=== PATIENT | female | born 1950 | race Two or more races ===

== ENCOUNTER → 2016-09-16 | Outpatient (CLI) | payer OTHER ==
[2016-09-16 16:36] LABS: Albumin 3.4 g/dL (3.4-5.0); BUN/Creatinine Ratio 14.8; Bilirubin, Total 0.5 mg/dL (0.2-1.0); Calcium 8.9 mg/dL (8.5-10.1); Potassium 3.4 mmol/L (3.5-5.1); Total Protein 7.4 g/dL (6.4-8.2)
[2016-09-16 17:10] LABS: INR 1.02 (0.9-1.15); Partial Thromboplastin Time 28.5 sec (22.64-33.71)
== END | disposition home or self-care (01) ==
LOC: LAB 15:55
PROVIDERS: ATTEND Internal Medicine
DX: K76.0 Fatty (change of) liver, not elsewhere classified (principal); R73.01 Impaired fasting glucose
CPT/HCPCS: 36415; 80053; 83036; 85610; 85730; 86141

== ENCOUNTER → 2017-03-31 | Outpatient (CLI) | payer OTHER ==
[2017-03-31 10:41] LABS: Urine Bilirubin Negative (Negative); Urine Blood Negative /uL (Negative); Urine Color Yellow (Yellow); Urine Glucose Normal (Normal); Urine Ketone Negative (Negative); Urine Mucus FEW (None Seen); Urine Nitrite Negative (Negative); Urine RBC 1 /hpf (0 - 4); Urine Squamous Epithelial Cell MOD /hpf (<5); Urine Urobilinogen Normal (Negative); Urine pH 5.5 (5.0-8.0)
[2017-03-31 10:54] LABS: Albumin 3.6 g/dL (3.4-5.0); Bilirubin, Total 0.7 mg/dL (0.2-1.0); Calcium 8.8 mg/dL (8.5-10.1); Potassium 3.7 mmol/L (3.5-5.1); Total Protein 7.7 g/dL (6.4-8.2)
== END | disposition home or self-care (01) ==
LOC: LAB 09:52
PROVIDERS: ATTEND Internal Medicine
DX: E11.9 Type 2 diabetes mellitus without complications (principal); K76.0 Fatty (change of) liver, not elsewhere classified
CPT/HCPCS: 36415; 80053; 80061; 81001; 82043; 83036; 84439; 84443; 86038

== ENCOUNTER → 2017-09-19 | Outpatient (CLI) | payer OTHER ==
[2017-09-19 10:48] LABS: Basophils # (auto) 0 uL; Basophils % (auto) 0.6 % (0.0-2.0); Eosinophils # (auto) 0.2 uL; Eosinophils % (auto) 3.4 % (0.0-7.0); Hematocrit 44.5 % (36.0-46.0); Hemoglobin 14.9 g/dL (12.2-16.2); Lymphocytes # (auto) 1.6 uL; Lymphocytes % (auto) 30.5 % (10.0-50.0); Mean Corpuscular Hemoglobin 31.3 pg (28.0-32.0); Mean Corpuscular Hgb Conc. 33.4 g/dL (32.0-36.0); Mean Corpuscular Volume 93.8 fL (80.0-100.0); Monocytes # (auto) 0.5 uL; Monocytes % (auto) 9.6 % (0.0-12.0); Neutrophils % (auto) 55.9 % (37.0-80.0); Nucleated Red Blood Cells % 0.1 %; Platelet Count (auto) 217 10^3/uL (140-450); Red Blood Cells 4.75 10^6/uL (4.0-5.20); Red Cell Distribution Width 13.5 % (11.8-14.3); White Blood Cell 5.3 10^3/uL (4.4-10.8)
[2017-09-19 11:07] LABS: INR 1.03 (0.9-1.15); Partial Thromboplastin Time 28.4 sec (22.64-33.71); Prothrombin Time 11.2 sec (9.37-12.3)
[2017-09-19 11:45] LABS: Albumin 3.3 g/dL (3.4-5.0); BUN/Creatinine Ratio 9.7; Bilirubin, Total 0.6 mg/dL (0.2-1.0); Potassium 3.6 mmol/L (3.5-5.1); Total Protein 7.2 g/dL (6.4-8.2)
== END | disposition home or self-care (01) ==
LOC: LAB 10:35
PROVIDERS: ATTEND Internal Medicine
DX: K76.0 Fatty (change of) liver, not elsewhere classified (principal); R73.03 Prediabetes; R79.89 Other specified abnormal findings of blood chemistry
CPT/HCPCS: 36415; 80053; 83036; 85025; 85610; 85730

== ENCOUNTER → 2018-10-08 | Outpatient (CLI) | payer OTHER, BC ==
[2018-10-08 09:49] LABS: BUN/Creatinine Ratio 23.7; Potassium 3.6 mmol/L (3.5-5.1)
[2018-10-08 09:51] LABS: Albumin 3.4 g/dL (3.4-5.0); Bilirubin, Total 0.6 mg/dL (0.2-1.0); Calcium 8.4 mg/dL (8.5-10.1); Total Protein 7.4 g/dL (6.4-8.2)
== END | disposition home or self-care (01) ==
LOC: LAB 08:12
PROVIDERS: ATTEND Internal Medicine
DX: K76.0 Fatty (change of) liver, not elsewhere classified (principal); R73.03 Prediabetes
CPT/HCPCS: 36415; 80053; 83036

== ENCOUNTER → 2019-04-15 | Outpatient (CLI) | payer OTHER ==
[2019-04-15 13:14] LABS: Urine Bacteria FEW /hpf (None Seen); Urine Blood Negative /uL (Negative); Urine Hyaline Cast MANY /lpf (0 - 2); Urine Mucus MODERATE (None Seen); Urine Specific Gravity 1.028 (1.001-1.035); Urine WBC 2 /hpf (0 - 5)
[2019-04-15 13:36] LABS: Albumin 3.4 g/dL (3.4-5.0); Calcium 8.8 mg/dL (8.5-10.1); Potassium 3.8 mmol/L (3.5-5.1); Total Protein 7.5 g/dL (6.4-8.2)
[2019-04-15 13:38] LABS: Bilirubin, Total 0.6 mg/dL (0.2-1.0)
[2019-04-15 14:13] LABS: Basophils # (auto) 0 uL; Basophils % (auto) 0.3 % (0.0-2.0); Eosinophils # (auto) 0.1 uL; Hematocrit 44.7 % (36.0-46.0); Hemoglobin 15.3 g/dL (12.2-16.2); Lymphocytes # (auto) 1.7 uL; Lymphocytes % (auto) 23.3 % (10.0-50.0); Mean Corpuscular Hemoglobin 32.2 pg (28.0-32.0); Mean Corpuscular Hgb Conc. 34.2 g/dL (32.0-36.0); Mean Corpuscular Volume 94.3 fL (80.0-100.0); Monocytes # (auto) 0.7 uL; Monocytes % (auto) 9.9 % (0.0-12.0); Neutrophils # (auto) 4.7 uL; Neutrophils % (auto) 64.5 % (37.0-80.0); Nucleated Red Blood Cells % 0.1 %; Platelet Count (auto) 252 10^3/uL (140-450); Red Blood Cells 4.74 10^6/uL (4.0-5.20); Red Cell Distribution Width 13.7 % (11.8-14.3); White Blood Cell 7.3 10^3/uL (4.4-10.8)
== END | disposition home or self-care (01) ==
LOC: LAB 12:35
PROVIDERS: ATTEND Internal Medicine
DX: R73.03 Prediabetes (principal); E83.52 Hypercalcemia
CPT/HCPCS: 36415; 80053; 80061; 81001; 82043; 83036; 83970; 84439; 84443; 85025; 85652

== ENCOUNTER → 2020-03-03 | Outpatient (CLI) | payer OTHER ==
[2020-03-03 16:59] LABS: Urine Bacteria NONE SEEN /hpf (None Seen); Urine Blood Negative /uL (Negative); Urine Mucus FEW (None Seen); Urine Specific Gravity 1.018 (1.001-1.035); Urine WBC 1 /hpf (0 - 5)
[2020-03-03 17:07] LABS: Basophils # (auto) 0 10 ^3/uL (0-0.2); Basophils % (auto) 0.5 % (0.0-2.0); Eosinophils # (auto) 0.2 10 ^3/uL (0-0.8); Eosinophils % (auto) 3.2 % (0.0-7.0); Hematocrit 45.3 % (36.0-46.0); Hemoglobin 14.7 g/dL (12.2-16.2); Lymphocytes # (auto) 1.8 10 ^3/uL (0.4-5.4); Lymphocytes % (auto) 29.9 % (10.0-50.0); Mean Corpuscular Hgb Conc. 32.5 g/dL (32.0-36.0); Mean Corpuscular Volume 95.2 fL (80.0-100.0); Monocytes # (auto) 0.7 10 ^3/uL (0-1.3); Monocytes % (auto) 11.9 % (0.0-12.0); Neutrophils # (auto) 3.4 10 ^3/uL (1.6-8.6); Neutrophils % (auto) 54.5 % (37.0-80.0); Nucleated Red Blood Cells % 0.1 %; Platelet Count (auto) 207 10^3/uL (140-450); Red Blood Cells 4.76 10^6/uL (4.0-5.20); Red Cell Distribution Width 13.6 % (11.8-14.3); White Blood Cell 6.2 10^3/uL (4.4-10.8)
[2020-03-03 17:50] LABS: Albumin 3.4 g/dL (3.4-5.0); Calcium 8.9 mg/dL (8.5-10.1); Potassium 3.3 mmol/L (3.5-5.1)
[2020-03-03 17:56] LABS: BUN/Creatinine Ratio 20.7; Bilirubin, Total 0.9 mg/dL (0.2-1.0); Total Protein 7.2 g/dL (6.4-8.2)
== END | disposition home or self-care (01) ==
LOC: LAB 15:24
PROVIDERS: ATTEND Internal Medicine
DX: M46.1 Sacroiliitis, not elsewhere classified (principal); E11.9 Type 2 diabetes mellitus without complications
CPT/HCPCS: 36415; 80053; 80061; 81001; 82043; 83036; 84439; 84443; 85025; 85652; 86038; 86431; 86812

== ENCOUNTER 2020-05-23 23:03 | Emergency (ER) | payer OTHER ==
[2020-05-23 23:10] VITALS: BP 101/71
== END 2020-05-24 00:27 | disposition left against medical advice (07) ==
LOC: ER 23:04
DX: R04.0 Epistaxis (principal); Z53.21 Procedure and treatment not carried out due to patient leaving prior to being seen by health care provider

== ENCOUNTER → 2020-06-05 | Outpatient (CLI) | payer OTHER ==
[2020-06-05 08:03] LABS: Basophils # (auto) 0 10 ^3/uL (0-0.2); Basophils % (auto) 0.5 % (0.0-2.0); Eosinophils # (auto) 0.2 10 ^3/uL (0-0.8); Eosinophils % (auto) 4.9 % (0.0-7.0); Hematocrit 40.9 % (36.0-46.0); Hemoglobin 13.8 g/dL (12.2-16.2); Lymphocytes # (auto) 1.7 10 ^3/uL (0.4-5.4); Lymphocytes % (auto) 34.9 % (10.0-50.0); Mean Corpuscular Hemoglobin 32.2 pg (28.0-32.0); Mean Corpuscular Hgb Conc. 33.6 g/dL (32.0-36.0); Mean Corpuscular Volume 95.8 fL (80.0-100.0); Monocytes # (auto) 0.6 10 ^3/uL (0-1.3); Monocytes % (auto) 11.4 % (0.0-12.0); Neutrophils # (auto) 2.4 10 ^3/uL (1.6-8.6); Neutrophils % (auto) 48.3 % (37.0-80.0); Nucleated Red Blood Cells % 0.1 %; Platelet Count (auto) 273 10^3/uL (140-450); Red Blood Cells 4.27 10^6/uL (4.0-5.20); Red Cell Distribution Width 14.2 % (11.8-14.3); White Blood Cell 4.9 10^3/uL (4.4-10.8)
[2020-06-05 08:09] LABS: Albumin 3.2 g/dL (3.4-5.0); Calcium 8.5 mg/dL (8.5-10.1); Potassium 3.3 mmol/L (3.5-5.1)
[2020-06-05 08:13] LABS: BUN/Creatinine Ratio 11.9; Bilirubin, Total 0.7 mg/dL (0.2-1.0); Total Protein 7.1 g/dL (6.4-8.2)
[2020-06-05 08:15] LABS: INR 1.06 (0.9-1.15)
== END | disposition home or self-care (01) ==
LOC: LAB 07:30
PROVIDERS: ATTEND Internal Medicine
DX: E11.9 Type 2 diabetes mellitus without complications (principal); R04.0 Epistaxis; D04.0 Carcinoma in situ of skin of lip
CPT/HCPCS: 36415; 80053; 83036; 85025; 85610

== ENCOUNTER → 2021-06-12 | Outpatient (CLI) | payer OTHER | END | disposition home or self-care (01) | LOC: LAB 08:46 | PROVIDERS: ATTEND Internal Medicine | DX: E11.9 Type 2 diabetes mellitus without complications (principal) | CPT/HCPCS: 36415; 82947; 83036 ==

== ENCOUNTER → 2021-09-12 | Outpatient (CLI) | payer OTHER ==
[2021-09-12 11:22] LABS: Basophils # (auto) 0 10 ^3/uL (0-0.2); Basophils % (auto) 0.5 % (0.0-2.0); Eosinophils # (auto) 0.2 10 ^3/uL (0-0.8); Eosinophils % (auto) 4.7 % (0.0-7.0); Hematocrit 43.1 % (36.0-46.0); Hemoglobin 14.8 g/dL (12.2-16.2); Lymphocytes # (auto) 1.1 10 ^3/uL (0.4-5.4); Lymphocytes % (auto) 25.5 % (10.0-50.0); Mean Corpuscular Hemoglobin 32.9 pg (28.0-32.0); Mean Corpuscular Hgb Conc. 34.2 g/dL (32.0-36.0); Mean Corpuscular Volume 96.1 fL (80.0-100.0); Monocytes # (auto) 0.4 10 ^3/uL (0-1.3); Monocytes % (auto) 9.9 % (0.0-12.0); Neutrophils # (auto) 2.5 10 ^3/uL (1.6-8.6); Neutrophils % (auto) 59.4 % (37.0-80.0); Nucleated Red Blood Cells % 0.1 %; Red Blood Cells 4.49 10^6/uL (4.0-5.20); Red Cell Distribution Width 14.5 % (11.8-14.3); White Blood Cell 4.2 10^3/uL (4.4-10.8)
[2021-09-12 11:48] LABS: Albumin 3.1 g/dL (3.4-5.0); Calcium 8.4 mg/dL (8.5-10.1); Potassium 3.2 mmol/L (3.5-5.1)
[2021-09-12 11:51] LABS: BUN/Creatinine Ratio 18.5; Bilirubin, Total 0.8 mg/dL (0.2-1.0)
== END | disposition home or self-care (01) ==
LOC: LAB 11:04
PROVIDERS: ATTEND Internal Medicine
DX: E11.9 Type 2 diabetes mellitus without complications (principal); M19.90 Unspecified osteoarthritis, unspecified site
CPT/HCPCS: 36415; 80053; 83036; 85025; 85652; 86200; 86431

== ENCOUNTER 2021-12-05 10:45 | Inpatient (IN) | payer OTHER ==
[~2021-12-05] VITALS: Ht 154.9 cm; Wt 131.0 kg
[2021-12-05] MEDS ORDERED: SODIUM CHLORIDE 0.9% 500 ML IVB ONE (11:15)
[2021-12-05] MEDS ORDERED: SODIUM CHLORIDE 0.9% 1,000 ML IV ONE (11:15)
[2021-12-05 11:54] LABS: Basophils # (auto) 0 10 ^3/uL (0-0.2); Basophils % (auto) 0.3 % (0.0-2.0); Eosinophils # (auto) 0.3 10 ^3/uL (0-0.8); Eosinophils % (auto) 3.3 % (0.0-7.0); Hematocrit 41.7 % (36.0-46.0); Hemoglobin 14.2 g/dL (12.2-16.2); Lymphocytes # (auto) 0.8 10 ^3/uL (0.4-5.4); Lymphocytes % (auto) 7.9 % (10.0-50.0); Mean Corpuscular Hemoglobin 32.7 pg (28.0-32.0); Mean Corpuscular Hgb Conc. 33.9 g/dL (32.0-36.0); Mean Corpuscular Volume 96.2 fL (80.0-100.0); Monocytes # (auto) 1.3 10 ^3/uL (0-1.3); Monocytes % (auto) 13.6 % (0.0-12.0); Neutrophils # (auto) 7.3 10 ^3/uL (1.6-8.6); Neutrophils % (auto) 74.9 % (37.0-80.0); Nucleated Red Blood Cells % 0.1 %; Red Blood Cells 4.34 10^6/uL (4.0-5.20); Red Cell Distribution Width 13.9 % (11.8-14.3); White Blood Cell 9.8 10^3/uL (4.4-10.8)
[2021-12-05 12:17] LABS: Urine Bacteria FEW /hpf (None Seen); Urine Blood Negative /uL (Negative); Urine Mucus FEW (None Seen); Urine Specific Gravity 1.009 (1.001-1.035); Urine WBC 6 /hpf (0 - 5)
[2021-12-05 12:27] LABS: Magnesium 2.4 mg/dL (1.6-2.6)
[2021-12-05 12:33] LABS: Albumin 2.5 g/dL (3.4-5.0); Calcium 8.4 mg/dL (8.5-10.1); Potassium 3.5 mmol/L (3.5-5.1)
[2021-12-05 12:36] LABS: Bilirubin, Total 2.4 mg/dL (0.2-1.0); Total Protein 6.7 g/dL (6.4-8.2)
[2021-12-05] MEDS ORDERED: ONDANSETRON HCL 4 MG/2 ML VIAL IV PRN ×2 (16:15→21:15)
[2021-12-05] MEDS ORDERED: MORPHINE SULFATE INJ 2 MG/ml SYRG IV PRN ×2 (16:15)
[2021-12-05] MEDS ORDERED: NITROGLYCERIN 0.4 MG SL TAB SL PRN (16:15)
[2021-12-05] MEDS ORDERED: DEXTROSE (50%) 50ML SYRG IV PRN (16:15)
[2021-12-05] MEDS ORDERED: IOHEXOL 350 MG/ML 100ML IJ ONE (16:19)
[2021-12-05] MEDS: SODIUM CHLORIDE 0.9% 1,000 ML IV SCH (16:30)
[2021-12-05] MEDS: InsuLIN REG 1unit/0.01ml Soln (100units/ml) SC SCH (17:00)
[2021-12-05] MEDS: ACCU-CHEK COMFORT CURVE STRIP VI SCH ×2 (17:33→21:50)
[2021-12-05] MEDS ORDERED: hydrALAZINE HCL 20 MG/ML VL IV PRN (21:15)
[2021-12-05] MEDS ORDERED: DOCUSATE SOD 100 MG CAP PO PRN (21:15)
[2021-12-05] MEDS ORDERED: LORazepam 0.5 MG TAB PO PRN (21:15)
[2021-12-05] MEDS ORDERED: ACETAMINOPHEN 325 MG TAB PO PRN (21:15)
[2021-12-05 21:36] VITALS: BP 113/54
[2021-12-05] MEDS: metroNIDAZOLE 500MG/100ML 100 ML IV SCH (21:50)
[2021-12-05 22:00] VITALS: BP 113/54
[2021-12-05] MEDS ORDERED: IBUP800T27 PO (22:00)
[2021-12-05] MEDS ORDERED: InsuLIN REG 1unit/0.01ml Soln (100units/ml) SC SCH (22:00)
[2021-12-05] MEDS ORDERED: GLIM-5 PO (22:00)
[2021-12-05] MEDS ORDERED: HYDR-4188 PO (22:02)
[2021-12-05] MEDS ORDERED: DIPH1TAB30 PO (22:02)
[2021-12-05 22:17] LABS: Magnesium 2.3 mg/dL (1.6-2.6); Phosphorus 3.9 mg/dL (2.5-4.90)
[2021-12-05] MEDS: cefTRIAXone 1GM/50ML D5W 50 ML IV SCH (23:15)
[2021-12-05] MEDS ORDERED: TEMAZEPAM 15 MG CAP PO ONE (23:15)
[2021-12-05] MEDS ORDERED: TEMAZEPAM 15 MG CAP ONE (23:23)
[2021-12-05 23:24] LABS: INR 1.16 (0.9-1.15); Partial Thromboplastin Time 29.7 sec (23.6-33.0)
[2021-12-06] MEDS: MORPHINE SULFATE INJ 2 MG/ml SYRG IV PRN ×3 (02:58→17:29)
[2021-12-06 05:00] VITALS: BP 125/64
[2021-12-06 05:28] LABS: Hematocrit 36.8 % (36.0-46.0); Mean Corpuscular Hemoglobin 33.1 pg (28.0-32.0); Mean Corpuscular Hgb Conc. 35.2 g/dL (32.0-36.0); Red Blood Cells 3.91 10^6/uL (4.0-5.20); Red Cell Distribution Width 13.6 % (11.8-14.3); White Blood Cell 9.4 10^3/uL (4.4-10.8)
[2021-12-06 05:45] LABS: Basophils % (manual) 0 (0.0-2.0); Blast Cells 0; Metamyelocytes % 0; Myelocytes % 0; Promyelocytes % 0; Reactive Lymphocytes 0
[2021-12-06 05:48] LABS: INR 1.16 (0.9-1.15); Partial Thromboplastin Time 30.6 sec (23.6-33.0)
[2021-12-06 06:23] LABS: Magnesium 2.2 mg/dL (1.6-2.6)
[2021-12-06] MEDS: metroNIDAZOLE 500MG/100ML 100 ML IV SCH ×3 (06:23→21:19)
[2021-12-06 06:31] LABS: Albumin 2.3 g/dL (3.4-5.0); BUN/Creatinine Ratio 21.2; Bilirubin, Total 1.5 mg/dL (0.2-1.0); Calcium 7.6 mg/dL (8.5-10.1); Phosphorus 3.6 mg/dL (2.5-4.90); Total Protein 6.1 g/dL (6.4-8.2); Uric Acid 5.2 mg/dL (2.6-6.0)
[2021-12-06] MEDS: InsuLIN REG 1unit/0.01ml Soln (100units/ml) SC SCH ×3 (06:39→17:27)
[2021-12-06] MEDS: ACCU-CHEK COMFORT CURVE STRIP VI SCH ×4 (06:39→17:28)
[2021-12-06 06:54] LABS: Potassium 2.8 mmol/L (3.5-5.1)
[2021-12-06] MEDS: SODIUM CHLORIDE 0.9% 1,000 ML IV SCH ×2 (08:55→14:21)
[2021-12-06 09:00] VITALS: BP 109/57
[2021-12-06 09:10] LABS: Band Neutrophils % (manual) 2; Eosinophils % (manual) 6 (0-7); Lymphocytes % (manual) 6 (10.0-50.0); Monocytes % (manual) 14 (0-12)
[2021-12-06] MEDS: cefTRIAXone 1GM/50ML D5W 50 ML IV SCH (09:53)
[2021-12-06] MEDS ORDERED: ENOXAPARIN SOD 40 MG/0.4 ML SYRINGE SC SCH (10:00)
[2021-12-06] MEDS ORDERED: POTASSIUM CHLORIDE 60 MEQ, LIDOCAINE 1% (LOCAL ANESTH.) 6 ML in SODIUM CHL 0.9% 500 ML IV ONE (11:15)
[2021-12-06] MEDS ORDERED: DEXTROSE (50%) 50ML SYRG IV PRN (11:45)
[2021-12-06 13:00] VITALS: BP 137/89
[2021-12-06] MEDS: ALBUTEROL SULF 2.5 MG/0.5ML(0.5%) NEB SOLN NEB PRN ×2 (14:46→20:29)
[2021-12-06 16:27] LABS: BUN/Creatinine Ratio 23.8; Calcium 7.8 mg/dL (8.5-10.1); Potassium 3.6 mmol/L (3.5-5.1)
[2021-12-06 17:00] VITALS: BP 134/75
[2021-12-06] MEDS: HYDROcodone-ACET 5/325MG TAB PO PRN (20:13)
[2021-12-06 21:16] VITALS: BP 122/67
[2021-12-07] MEDS: ACCU-CHEK COMFORT CURVE STRIP VI SCH ×5 (00:09→23:38)
[2021-12-07] MEDS: SODIUM CHLORIDE 0.9% 1,000 ML IV SCH ×2 (02:48→13:59)
[2021-12-07 05:00] VITALS: BP 121/60
[2021-12-07] MEDS: metroNIDAZOLE 500MG/100ML 100 ML IV SCH ×3 (05:46→21:33)
[2021-12-07] MEDS: ALBUTEROL SULF 2.5 MG/0.5ML(0.5%) NEB SOLN NEB PRN ×3 (05:58→22:03)
[2021-12-07] MEDS: InsuLIN REG 1unit/0.01ml Soln (100units/ml) SC SCH ×5 (06:00→23:38)
[2021-12-07 06:16] LABS: Hematocrit 34.3 % (36.0-46.0); Hemoglobin 12.2 g/dL (12.2-16.2); Mean Corpuscular Hemoglobin 33.4 pg (28.0-32.0); Mean Corpuscular Hgb Conc. 35.5 g/dL (32.0-36.0); Mean Corpuscular Volume 94.1 fL (80.0-100.0); Red Blood Cells 3.65 10^6/uL (4.0-5.20)
[2021-12-07 06:29] LABS: Band Neutrophils % (manual) 0; Basophils % (manual) 0 (0.0-2.0); Blast Cells 0; Metamyelocytes % 0; Potassium 3.3 mmol/L (3.5-5.1); Promyelocytes % 0; Reactive Lymphocytes 0
[2021-12-07 06:37] LABS: BUN/Creatinine Ratio 31.6; Bilirubin, Total 1.4 mg/dL (0.2-1.0); Calcium 7.5 mg/dL (8.5-10.1); Total Protein 5.9 g/dL (6.4-8.2)
[2021-12-07] MEDS ORDERED: ceFAZolin 1GM/50ML 100 ML IV ONE (06:54)
[2021-12-07] MEDS ORDERED: MIDAZOLAM HCL 2MG/2ML 2ml VIAL (1mg/ml) ONE (07:31)
[2021-12-07] MEDS ORDERED: ROCURONIUM 10MG/ML 10ML VIAL IV ONE (07:31)
[2021-12-07] MEDS ORDERED: fentaNYL CITRATE 100 MCG/2 ML VL ONE (07:31)
[2021-12-07] MEDS ORDERED: BUPIVACAINE 0.25% INJ 50ML VIAL ONE (07:36)
[2021-12-07] MEDS ORDERED: LIDOCAINE 1%-Mpf/Epinephrine 1:200,000 ONE (07:36)
[2021-12-07] MEDS ORDERED: SUCCINYLCHOLINE CHLORIDE 20 MG/ML 10ML VIAL IV ONE (07:43)
[2021-12-07] MEDS ORDERED: ONDANSETRON HCL 4 MG/2 ML VIAL ONE (07:46)
[2021-12-07] MEDS ORDERED: PROPOFOL 10 MG/ML 20 ML IV ONE (07:46)
[2021-12-07] MEDS ORDERED: LIDOCAINE 2% (LOCAL ANESTH.) PF 5ml SDV ONE (07:46)
[2021-12-07 08:29] LABS: Eosinophils % (manual) 3 (0-7); Lymphocytes % (manual) 5 (10.0-50.0); Monocytes % (manual) 14 (0-12); Myelocytes % 1
[2021-12-07] MEDS: cefTRIAXone 1GM/50ML D5W 50 ML IV SCH (09:00)
[2021-12-07] MEDS ORDERED: HYDROmorphone HCL 2 MG/ML VL/or syr ONE (09:03)
[2021-12-07] MEDS ORDERED: ONDANSETRON HCL 4 MG/2 ML VIAL IV PRN (09:15)
[2021-12-07] MEDS ORDERED: HYDROmorphone HCL 2 MG/ML VL/or syr IV PRN (09:15)
[2021-12-07] MEDS ORDERED: PHENYLEPHRINE HCL 10 MG/ML VL ONE (09:20)
[2021-12-07] MEDS ORDERED: SUGAMMADEX 200mg/2ml Vial (100MG/ML) IV ONE ×2 (09:25→09:57)
[2021-12-07] MEDS ORDERED: NALOXONE HCL 0.4 MG/ML VIAL ONE (09:55)
[2021-12-07] MEDS ORDERED: POTASSIUM CHLORIDE 40 MEQ, LIDOCAINE 1% (LOCAL ANESTH.) 4 ML in SODIUM CHL 0.9% 250 ML IV ONE (10:30)
[2021-12-07] MEDS: HYDROmorphone HCL 2 MG/ML VL/or syr IV PRN ×4 (10:30→11:00)
[2021-12-07] MEDS: PANTOPRAZOLE 40 MG/10 ML VIAL INJ IV SCH (12:58)
[2021-12-07 13:00] VITALS: BP 131/70
[2021-12-07 16:28] VITALS: BP 124/94
[2021-12-07 22:00] VITALS: BP 126/74
[2021-12-08] MEDS: ALBUTEROL SULF 2.5 MG/0.5ML(0.5%) NEB SOLN NEB PRN ×4 (02:10→14:29)
[2021-12-08 05:00] VITALS: BP 119/64
[2021-12-08] MEDS: SODIUM CHLORIDE 0.9% 1,000 ML IV SCH ×2 (05:00→16:10)
[2021-12-08 05:13] LABS: Basophils # (auto) 0 10 ^3/uL (0-0.2); Basophils % (auto) 0.1 % (0.0-2.0); Eosinophils # (auto) 0.1 10 ^3/uL (0-0.8); Eosinophils % (auto) 0.6 % (0.0-7.0); Hematocrit 34.1 % (36.0-46.0); Hemoglobin 11.4 g/dL (12.2-16.2); Lymphocytes # (auto) 0.7 10 ^3/uL (0.4-5.4); Lymphocytes % (auto) 6.3 % (10.0-50.0); Mean Corpuscular Hemoglobin 32.3 pg (28.0-32.0); Mean Corpuscular Hgb Conc. 33.6 g/dL (32.0-36.0); Mean Corpuscular Volume 96.1 fL (80.0-100.0); Monocytes # (auto) 1.8 10 ^3/uL (0-1.3); Monocytes % (auto) 15.6 % (0.0-12.0); Neutrophils # (auto) 9.1 10 ^3/uL (1.6-8.6); Neutrophils % (auto) 77.4 % (37.0-80.0); Red Blood Cells 3.55 10^6/uL (4.0-5.20); Red Cell Distribution Width 13.9 % (11.8-14.3); White Blood Cell 11.8 10^3/uL (4.4-10.8)
[2021-12-08 05:33] LABS: Albumin 1.9 g/dL (3.4-5.0); Calcium 7.3 mg/dL (8.5-10.1); Potassium 4.2 mmol/L (3.5-5.1)
[2021-12-08 05:36] LABS: Bilirubin, Total 1.2 mg/dL (0.2-1.0); Total Protein 5.9 g/dL (6.4-8.2)
[2021-12-08] MEDS: ACCU-CHEK COMFORT CURVE STRIP VI SCH ×2 (05:53→12:00)
[2021-12-08] MEDS: InsuLIN REG 1unit/0.01ml Soln (100units/ml) SC SCH ×2 (05:53→12:00)
[2021-12-08] MEDS: metroNIDAZOLE 500MG/100ML 100 ML IV SCH ×3 (05:53→21:46)
[2021-12-08 08:36] VITALS: BP 114/62
[2021-12-08] MEDS: PANTOPRAZOLE 40 MG/10 ML VIAL INJ IV SCH (09:17)
[2021-12-08] MEDS: cefTRIAXone 1GM/50ML D5W 50 ML IV SCH (09:22)
[2021-12-08] MEDS: HYDROmorphone HCL 2 MG/ML VL/or syr IV PRN ×3 (09:22→19:43)
[2021-12-08] MEDS ORDERED: LORazepam 2MG/ML-1ML VIAL IV PRN (09:45)
[2021-12-08 13:00] VITALS: BP 103/59
[2021-12-08 17:24] VITALS: BP 109/57
[2021-12-08] MEDS: ALBUTEROL SULF 2.5 MG/0.5ML(0.5%) NEB SOLN NEB SCH ×2 (18:35→21:59)
[2021-12-08] MEDS: HYDROcodone-ACET 5/325MG TAB PO PRN (21:45)
[2021-12-08 22:00] VITALS: BP 112/53
[2021-12-09] MEDS: ACCU-CHEK COMFORT CURVE STRIP VI SCH ×4 (00:02→18:00)
[2021-12-09] MEDS: HYDROmorphone HCL 2 MG/ML VL/or syr IV PRN ×3 (00:15→21:43)
[2021-12-09] MEDS: ALBUTEROL SULF 2.5 MG/0.5ML(0.5%) NEB SOLN NEB SCH ×5 (01:59→19:03)
[2021-12-09 05:00] VITALS: BP 124/74
[2021-12-09] MEDS: metroNIDAZOLE 500MG/100ML 100 ML IV SCH ×3 (05:28→21:42)
[2021-12-09] MEDS: InsuLIN REG 1unit/0.01ml Soln (100units/ml) SC SCH ×4 (05:28→18:00)
[2021-12-09 05:57] LABS: Basophils # (auto) 0 10 ^3/uL (0-0.2); Basophils % (auto) 0.1 % (0.0-2.0); Eosinophils # (auto) 0.5 10 ^3/uL (0-0.8); Eosinophils % (auto) 4.8 % (0.0-7.0); Hematocrit 32.6 % (36.0-46.0); Hemoglobin 11.3 g/dL (12.2-16.2); Lymphocytes # (auto) 1.1 10 ^3/uL (0.4-5.4); Lymphocytes % (auto) 11.4 % (10.0-50.0); Mean Corpuscular Hemoglobin 33.2 pg (28.0-32.0); Mean Corpuscular Hgb Conc. 34.7 g/dL (32.0-36.0); Mean Corpuscular Volume 95.7 fL (80.0-100.0); Monocytes # (auto) 1.4 10 ^3/uL (0-1.3); Neutrophils # (auto) 6.8 10 ^3/uL (1.6-8.6); Neutrophils % (auto) 69.7 % (37.0-80.0); Red Blood Cells 3.41 10^6/uL (4.0-5.20); White Blood Cell 9.8 10^3/uL (4.4-10.8)
[2021-12-09 06:17] LABS: Calcium 7.6 mg/dL (8.5-10.1); Potassium 3.6 mmol/L (3.5-5.1)
[2021-12-09 06:22] LABS: BUN/Creatinine Ratio 38.4
[2021-12-09] MEDS: SODIUM CHLORIDE 0.9% 1,000 ML IV SCH ×2 (06:25→19:45)
[2021-12-09 07:07] VITALS: BP 122/71
[2021-12-09 09:00] VITALS: BP 112/45
[2021-12-09] MEDS: PANTOPRAZOLE 40 MG/10 ML VIAL INJ IV SCH (10:33)
[2021-12-09] MEDS: cefTRIAXone 1GM/50ML D5W 50 ML IV SCH (10:33)
[2021-12-09 13:00] VITALS: BP 105/45
[2021-12-09] MEDS: HYDROcodone-ACET 5/325MG TAB PO PRN (13:25)
[2021-12-09 17:00] VITALS: BP 106/67
[2021-12-09 22:00] VITALS: BP 121/66
[2021-12-09] MEDS ORDERED: diphenhdrAMINE HCL 25 MG CAP PO ONE ×2 (22:45→23:20)
[2021-12-10] MEDS: ACCU-CHEK COMFORT CURVE STRIP VI SCH ×5 (00:28→23:42)
[2021-12-10] MEDS: ALBUTEROL SULF 2.5 MG/0.5ML(0.5%) NEB SOLN NEB SCH ×7 (02:00→23:04)
[2021-12-10] MEDS: HYDROmorphone HCL 2 MG/ML VL/or syr IV PRN ×3 (02:17→22:20)
[2021-12-10 05:00] VITALS: BP 122/67
[2021-12-10] MEDS: metroNIDAZOLE 500MG/100ML 100 ML IV SCH (05:56)
[2021-12-10] MEDS: InsuLIN REG 1unit/0.01ml Soln (100units/ml) SC SCH ×5 (05:57→23:42)
[2021-12-10 08:20] VITALS: BP 105/64
[2021-12-10] MEDS: cefTRIAXone 1GM/50ML D5W 50 ML IV SCH (08:30)
[2021-12-10] MEDS: PANTOPRAZOLE 40 MG/10 ML VIAL INJ IV SCH (08:31)
[2021-12-10 09:48] LABS: Hepatitis A Ab IgM Negative; Hepatitis B Core IgM Negative; Hepatitis C Antibody Negative (Negative)
[2021-12-10 12:15] VITALS: BP 106/53
[2021-12-10] MEDS: metroNIDAZOLE 500 MG TAB PO SCH ×2 (13:37→21:11)
[2021-12-10 16:25] VITALS: BP 113/47
[2021-12-10] MEDS: HYDROcodone-ACET 5/325MG TAB PO PRN (18:02)
[2021-12-10 22:00] VITALS: BP 118/63
[2021-12-11 05:00] VITALS: BP 121/63
[2021-12-11] MEDS: InsuLIN REG 1unit/0.01ml Soln (100units/ml) SC SCH ×4 (05:06→23:19)
[2021-12-11] MEDS: metroNIDAZOLE 500 MG TAB PO SCH ×3 (05:06→21:44)
[2021-12-11] MEDS: ACCU-CHEK COMFORT CURVE STRIP VI SCH ×4 (05:06→23:19)
[2021-12-11 05:21] LABS: Basophils # (auto) 0 10 ^3/uL (0-0.2); Basophils % (auto) 0.6 % (0.0-2.0); Eosinophils # (auto) 0.5 10 ^3/uL (0-0.8); Eosinophils % (auto) 8.6 % (0.0-7.0); Hematocrit 33.9 % (36.0-46.0); Hemoglobin 11.8 g/dL (12.2-16.2); Lymphocytes % (auto) 16.6 % (10.0-50.0); Mean Corpuscular Hemoglobin 33.4 pg (28.0-32.0); Mean Corpuscular Hgb Conc. 34.6 g/dL (32.0-36.0); Mean Corpuscular Volume 96.3 fL (80.0-100.0); Monocytes # (auto) 0.7 10 ^3/uL (0-1.3); Monocytes % (auto) 12.4 % (0.0-12.0); Neutrophils # (auto) 3.6 10 ^3/uL (1.6-8.6); Neutrophils % (auto) 61.8 % (37.0-80.0); Nucleated Red Blood Cells % 0.3 %; Red Blood Cells 3.52 10^6/uL (4.0-5.20); Red Cell Distribution Width 13.9 % (11.8-14.3); White Blood Cell 5.9 10^3/uL (4.4-10.8)
[2021-12-11 05:33] LABS: Potassium 3.6 mmol/L (3.5-5.1)
[2021-12-11 05:38] LABS: Albumin 1.8 g/dL (3.4-5.0); BUN/Creatinine Ratio 25.6; Bilirubin, Total 0.9 mg/dL (0.2-1.0); Calcium 7.5 mg/dL (8.5-10.1); Total Protein 5.7 g/dL (6.4-8.2)
[2021-12-11] MEDS: ALBUTEROL SULF 2.5 MG/0.5ML(0.5%) NEB SOLN NEB SCH ×5 (06:38→22:59)
[2021-12-11 09:00] VITALS: BP 128/73
[2021-12-11] MEDS: PANTOPRAZOLE 40 MG/10 ML VIAL INJ IV SCH (10:00)
[2021-12-11] MEDS: cefTRIAXone 1GM/50ML D5W 50 ML IV SCH (10:30)
[2021-12-11] MEDS: HYDROcodone-ACET 5/325MG TAB PO PRN ×3 (11:08→23:53)
[2021-12-11 13:00] VITALS: BP 118/61
[2021-12-11 17:00] VITALS: BP 120/64
[2021-12-11 22:00] VITALS: BP 102/46
[2021-12-12] MEDS: ALBUTEROL SULF 2.5 MG/0.5ML(0.5%) NEB SOLN NEB SCH ×5 (01:35→22:20)
[2021-12-12 05:00] VITALS: BP 136/77
[2021-12-12] MEDS: ACCU-CHEK COMFORT CURVE STRIP VI SCH ×4 (05:25→23:20)
[2021-12-12] MEDS: InsuLIN REG 1unit/0.01ml Soln (100units/ml) SC SCH ×4 (05:26→23:20)
[2021-12-12] MEDS: metroNIDAZOLE 500 MG TAB PO SCH ×3 (05:46→21:09)
[2021-12-12 08:10] VITALS: BP 123/55
[2021-12-12 09:00] VITALS: BP 123/55
[2021-12-12] MEDS ORDERED: FUROSEMIDE 40 MG/4 ML VIAL IV ONE (10:00)
[2021-12-12] MEDS ORDERED: POTASSIUM CHL 20 Meq TABLET PO ONE (10:00)
[2021-12-12] MEDS: PANTOPRAZOLE 40 MG TAB PO SCH (10:10)
[2021-12-12] MEDS: HYDROmorphone HCL 2 MG/ML VL/or syr IV PRN ×3 (10:20→21:18)
[2021-12-12] MEDS: levoFLOXacin 500 MG TAB PO SCH (11:20)
[2021-12-12 13:00] VITALS: BP 117/54
[2021-12-12 17:00] VITALS: BP 102/52
[2021-12-12 22:00] VITALS: BP 106/52
[2021-12-13] MEDS: ALBUTEROL SULF 2.5 MG/0.5ML(0.5%) NEB SOLN NEB SCH ×4 (02:00→15:02)
[2021-12-13 05:00] VITALS: BP 109/52
[2021-12-13] MEDS: ACCU-CHEK COMFORT CURVE STRIP VI SCH ×2 (05:22→12:00)
[2021-12-13] MEDS: InsuLIN REG 1unit/0.01ml Soln (100units/ml) SC SCH ×2 (05:22→12:00)
[2021-12-13] MEDS: metroNIDAZOLE 500 MG TAB PO SCH (05:22)
[2021-12-13 06:12] LABS: BUN/Creatinine Ratio 17.4; Potassium 3.6 mmol/L (3.5-5.1)
[2021-12-13 08:00] VITALS: BP 118/63
[2021-12-13] MEDS: HYDROmorphone HCL 2 MG/ML VL/or syr IV PRN (08:45)
[2021-12-13] MEDS: levoFLOXacin 500 MG TAB PO SCH (10:33)
[2021-12-13] MEDS: PANTOPRAZOLE 40 MG TAB PO SCH (10:33)
[2021-12-13] MEDS ORDERED: POTASSIUM CHL 20 Meq TABLET PO ONE (11:15)
[2021-12-13] MEDS ORDERED: MET500T PO (11:15)
[2021-12-13] MEDS ORDERED: FURO1TAB31 PO (11:15)
[2021-12-13] MEDS ORDERED: FUROSEMIDE 40 MG/4 ML VIAL IV ONE (11:15)
[2021-12-13] MEDS ORDERED: LEVO-28 PO (11:15)
[2021-12-13] MEDS ORDERED: POTA-180 PO (11:15)
[2021-12-13 12:00] VITALS: BP 112/54
[2021-12-13 14:46] VITALS: BP 112/54
== END 2021-12-13 15:25 | disposition home health service (06) | DRG 414 ==
LOC: ER 10:50 → TELE 19:20 → TELE-CENTR 20:53 → CENTRAL 12-13 12:06
PROVIDERS: ADMIT Hospitalist; ATTEND Internal Medicine
PROC: 0FJ44ZZ Inspection of Gallbladder, Percutaneous Endoscopic Approach (ICD-10-PCS; 2021-12-07)
PROC: 0FT40ZZ Resection of Gallbladder, Open Approach (ICD-10-PCS; principal; 2021-12-07 07:54)
DX: K80.00 Calculus of gallbladder with acute cholecystitis without obstruction (principal); I21.A1 Myocardial infarction type 2; J69.0 Pneumonitis due to inhalation of food and vomit; J96.00 Acute respiratory failure, unspecified whether with hypoxia or hypercapnia; Z68.43 Body mass index [BMI] 50.0-59.9, adult; K82.A1 Gangrene of gallbladder in cholecystitis; E11.65 Type 2 diabetes mellitus with hyperglycemia; E66.01 Morbid (severe) obesity due to excess calories; E78.5 Hyperlipidemia, unspecified; E87.6 Hypokalemia; Z20.822 Contact with and (suspected) exposure to COVID-19; I11.9 Hypertensive heart disease without heart failure; K74.60 Unspecified cirrhosis of liver; K75.81 Nonalcoholic steatohepatitis (NASH); M06.9 Rheumatoid arthritis, unspecified; M19.90 Unspecified osteoarthritis, unspecified site; Z79.84 Long term (current) use of oral hypoglycemic drugs; Z79.899 Other long term (current) drug therapy; Z83.3 Family history of diabetes mellitus; Z90.710 Acquired absence of both cervix and uterus; E11.9 Type 2 diabetes mellitus without complications
CPT/HCPCS: 36415; 71046; 71275; 76705; 78226; 80048; 80053; 80061; 80074; 81001; 82550; 82728; 82962; 83615; 83690; 83735; 83880; 84100; 84439; 84443; 84484; 84550; 85007; 85025; 85027; 85379; 85610; 85652; 85730; 86850; 86900; 86901; 87040; 87086; 93005; 93306; 94640; 96361; 96374; 97110; 97116; 97163; 97530; C9113; G0378; J0330; J0690; J0696; J1815; J2001; J2250; J2405; J2704; J3490

== ENCOUNTER → 2022-01-10 | Outpatient (CLI) | payer OTHER ==
[~2022-01-10] MED LIST: DIPH1TAB30 PO; FURO1TAB31 PO; GLIM-5 PO; HYDR-4188 PO; HYDR-4902 PO; IBUP800T27 PO; IOHEXOL 300 MG/ML 100ML BOTTLE IJ ONE; LEVO-28 PO; LEVO500T31 PO; MET500T PO; METR500T PO; POTA-180 PO
== END | disposition home or self-care (01) ==
LOC: XYW 10:47
PROVIDERS: ATTEND Surgery
DX: K80.10 Calculus of gallbladder with chronic cholecystitis without obstruction (principal); Z96.89 Presence of other specified functional implants; Z20.822 Contact with and (suspected) exposure to COVID-19; Z80.8 Family history of malignant neoplasm of other organs or systems; Z90.710 Acquired absence of both cervix and uterus; Z83.3 Family history of diabetes mellitus
CPT/HCPCS: 74300; Q9967

== ENCOUNTER 2022-03-04 09:29 | Inpatient (IN) | payer OTHER ==
[~2022-03-04] VITALS: Ht 154.9 cm; Wt 89.4 kg
[~2022-03-04 09:29] MED LIST changes: -DIPH1TAB30 PO; -IBUP800T27 PO; -IOHEXOL 300 MG/ML 100ML BOTTLE IJ ONE
[2022-03-04 10:59] LABS: Basophils # (auto) 0 10 ^3/uL (0-0.2); Basophils % (auto) 0.1 % (0.0-2.0); Eosinophils # (auto) 0 10 ^3/uL (0-0.8); Hematocrit 41.7 % (36.0-46.0); Hemoglobin 13.8 g/dL (12.2-16.2); Lymphocytes # (auto) 0.3 10 ^3/uL (0.4-5.4); Lymphocytes % (auto) 2.6 % (10.0-50.0); Mean Corpuscular Hemoglobin 31.2 pg (28.0-32.0); Mean Corpuscular Hgb Conc. 33.1 g/dL (32.0-36.0); Mean Corpuscular Volume 94.3 fL (80.0-100.0); Monocytes # (auto) 0.6 10 ^3/uL (0-1.3); Monocytes % (auto) 4.5 % (0.0-12.0); Neutrophils # (auto) 12.4 10 ^3/uL (1.6-8.6); Neutrophils % (auto) 92.8 % (37.0-80.0); Nucleated Red Blood Cells % 0.1 %; Red Blood Cells 4.42 10^6/uL (4.0-5.20); Red Cell Distribution Width 14.6 % (11.8-14.3); White Blood Cell 13.4 10^3/uL (4.4-10.8)
[2022-03-04 12:45] LABS: Calcium 8.2 mg/dL (8.5-10.1); Potassium 3.5 mmol/L (3.5-5.1)
[2022-03-04 12:51] LABS: Albumin 3.1 g/dL (3.4-5.0); BUN/Creatinine Ratio 16.7; Bilirubin, Total 1.9 mg/dL (0.2-1.0); Total Protein 7.1 g/dL (6.4-8.2)
[2022-03-04] MEDS ORDERED: metroNIDAZOLE 500MG/100ML 100 ML IV ONE (13:15)
[2022-03-04] MEDS ORDERED: cefTRIAXone 1GM/50ML D5W 50 ML IV ONE (13:15)
[2022-03-04] MEDS ORDERED: DEXTROSE (50%) 50ML SYRG IV PRN (21:45)
[2022-03-04] MEDS ORDERED: ONDANSETRON HCL 4 MG/2 ML VIAL IV PRN (21:45)
[2022-03-04] MEDS ORDERED: TEMAZEPAM 15 MG CAP PO PRN (21:45)
[2022-03-04] MEDS: metroNIDAZOLE 500MG/100ML 100 ML IV SCH (22:38)
[2022-03-04] MEDS: MORPHINE SULFATE INJ 2 MG/ml SYRG IV PRN (22:50)
[2022-03-05] VITALS (7 sets, daily range): BP systolic 114–146; BP diastolic 62–80
[2022-03-05] MEDS: ACCU-CHEK COMFORT CURVE STRIP VI SCH ×4 (00:07→17:21)
[2022-03-05] MEDS: InsuLIN REG 1unit/0.01ml Soln (100units/ml) SC SCH ×4 (00:09→17:21)
[2022-03-05 05:57] LABS: Basophils # (auto) 0 10 ^3/uL (0-0.2); Basophils % (auto) 0.1 % (0.0-2.0); Eosinophils # (auto) 0.1 10 ^3/uL (0-0.8); Eosinophils % (auto) 0.9 % (0.0-7.0); Hemoglobin 12.1 g/dL (12.2-16.2); Lymphocytes % (auto) 10.1 % (10.0-50.0); Mean Corpuscular Hemoglobin 32.2 pg (28.0-32.0); Mean Corpuscular Hgb Conc. 34.5 g/dL (32.0-36.0); Mean Corpuscular Volume 93.3 fL (80.0-100.0); Monocytes # (auto) 0.9 10 ^3/uL (0-1.3); Monocytes % (auto) 8.8 % (0.0-12.0); Neutrophils # (auto) 8.1 10 ^3/uL (1.6-8.6); Neutrophils % (auto) 80.1 % (37.0-80.0); Red Blood Cells 3.75 10^6/uL (4.0-5.20); Red Cell Distribution Width 14.5 % (11.8-14.3); White Blood Cell 10.2 10^3/uL (4.4-10.8)
[2022-03-05 05:58] LABS: Albumin 2.6 g/dL (3.4-5.0); Calcium 7.9 mg/dL (8.5-10.1); Potassium 3.2 mmol/L (3.5-5.1)
[2022-03-05 06:00] LABS: BUN/Creatinine Ratio 38.8
[2022-03-05 06:02] LABS: Bilirubin, Total 2.4 mg/dL (0.2-1.0); Total Protein 5.8 g/dL (6.4-8.2)
[2022-03-05] MEDS: metroNIDAZOLE 500MG/100ML 100 ML IV SCH ×3 (06:36→22:22)
[2022-03-05] MEDS: cefTRIAXone 1GM/50ML D5W 50 ML IV SCH (09:36)
[2022-03-05] MEDS: PANTOPRAZOLE 40 MG TAB PO SCH (09:36)
[2022-03-05] MEDS: MORPHINE SULFATE INJ 2 MG/ml SYRG IV PRN ×2 (09:47→16:41)
[2022-03-05] MEDS ORDERED: FUROSEMIDE 40 MG TAB PO SCH (10:00)
[2022-03-05] MEDS: SOD CHL 0.9%/ KCL 20MEQ 1,000 ML IV SCH (13:18)
[2022-03-05] MEDS: ACETAMINOPHEN 325 MG TAB PO PRN (22:32)
[2022-03-06] MEDS: SOD CHL 0.9%/ KCL 20MEQ 1,000 ML IV SCH ×2 (01:11→22:03)
[2022-03-06] MEDS: ACCU-CHEK COMFORT CURVE STRIP VI SCH ×5 (01:11→23:20)
[2022-03-06 05:25] VITALS: BP 130/77
[2022-03-06] MEDS: InsuLIN REG 1unit/0.01ml Soln (100units/ml) SC SCH ×5 (06:00→23:21)
[2022-03-06] MEDS: metroNIDAZOLE 500MG/100ML 100 ML IV SCH ×3 (06:13→22:03)
[2022-03-06 07:09] LABS: Basophils # (auto) 0 10 ^3/uL (0-0.2); Basophils % (auto) 0.3 % (0.0-2.0); Eosinophils # (auto) 0.1 10 ^3/uL (0-0.8); Hematocrit 36.2 % (36.0-46.0); Hemoglobin 12.4 g/dL (12.2-16.2); Lymphocytes # (auto) 0.7 10 ^3/uL (0.4-5.4); Lymphocytes % (auto) 8.7 % (10.0-50.0); Mean Corpuscular Hemoglobin 32.2 pg (28.0-32.0); Mean Corpuscular Hgb Conc. 34.2 g/dL (32.0-36.0); Monocytes # (auto) 0.9 10 ^3/uL (0-1.3); Monocytes % (auto) 11.6 % (0.0-12.0); Neutrophils # (auto) 6.3 10 ^3/uL (1.6-8.6); Neutrophils % (auto) 78.4 % (37.0-80.0); Red Blood Cells 3.86 10^6/uL (4.0-5.20); Red Cell Distribution Width 14.1 % (11.8-14.3)
[2022-03-06 07:29] LABS: Albumin 2.4 g/dL (3.4-5.0); BUN/Creatinine Ratio 27.7; Bilirubin, Total 2.1 mg/dL (0.2-1.0); Calcium 7.6 mg/dL (8.5-10.1); Total Protein 6.4 g/dL (6.4-8.2)
[2022-03-06 09:00] VITALS: BP 127/63
[2022-03-06] MEDS: cefTRIAXone 1GM/50ML D5W 50 ML IV SCH (09:45)
[2022-03-06] MEDS: PANTOPRAZOLE 40 MG TAB PO SCH (09:47)
[2022-03-06] MEDS: MORPHINE SULFATE INJ 2 MG/ml SYRG IV PRN (09:47)
[2022-03-06 13:00] VITALS: BP 102/54
[2022-03-06] MEDS ORDERED: POTASSIUM CHL 20 Meq TABLET PO ONE (14:15)
[2022-03-06 16:59] VITALS: BP 147/77
[2022-03-06] MEDS: ACETAMINOPHEN 325 MG TAB PO PRN (20:16)
[2022-03-06 22:00] VITALS: BP 127/64
[2022-03-06] MEDS: HYDROcodone-ACET 5/325MG TAB PO PRN (23:26)
[2022-03-07 05:00] VITALS: BP 123/74
[2022-03-07] MEDS: InsuLIN REG 1unit/0.01ml Soln (100units/ml) SC SCH ×3 (06:00→18:00)
[2022-03-07] MEDS: ACCU-CHEK COMFORT CURVE STRIP VI SCH ×3 (06:22→18:09)
[2022-03-07] MEDS: metroNIDAZOLE 500MG/100ML 100 ML IV SCH ×2 (06:22→14:09)
[2022-03-07 06:32] LABS: Albumin 2.4 g/dL (3.4-5.0); Calcium 7.4 mg/dL (8.5-10.1); Potassium 3.3 mmol/L (3.5-5.1)
[2022-03-07 06:36] LABS: BUN/Creatinine Ratio 26.2; Bilirubin, Total 1.2 mg/dL (0.2-1.0); Total Protein 5.7 g/dL (6.4-8.2)
[2022-03-07 06:47] LABS: Basophils # (auto) 0 10 ^3/uL (0-0.2); Basophils % (auto) 0.2 % (0.0-2.0); Eosinophils # (auto) 0.1 10 ^3/uL (0-0.8); Eosinophils % (auto) 1.9 % (0.0-7.0); Hematocrit 36.1 % (36.0-46.0); Hemoglobin 12.4 g/dL (12.2-16.2); Lymphocytes # (auto) 0.7 10 ^3/uL (0.4-5.4); Lymphocytes % (auto) 10.4 % (10.0-50.0); Mean Corpuscular Hemoglobin 32.1 pg (28.0-32.0); Mean Corpuscular Hgb Conc. 34.3 g/dL (32.0-36.0); Mean Corpuscular Volume 93.7 fL (80.0-100.0); Monocytes % (auto) 14.8 % (0.0-12.0); Neutrophils # (auto) 4.7 10 ^3/uL (1.6-8.6); Neutrophils % (auto) 72.7 % (37.0-80.0); Red Blood Cells 3.85 10^6/uL (4.0-5.20); Red Cell Distribution Width 13.9 % (11.8-14.3); White Blood Cell 6.5 10^3/uL (4.4-10.8)
[2022-03-07 09:00] VITALS: BP 139/82
[2022-03-07] MEDS: cefTRIAXone 1GM/50ML D5W 50 ML IV SCH (09:50)
[2022-03-07] MEDS: PANTOPRAZOLE 40 MG TAB PO SCH (09:50)
[2022-03-07] MEDS: ACETAMINOPHEN 325 MG TAB PO PRN (12:43)
[2022-03-07 13:00] VITALS: BP 125/76
[2022-03-07] MEDS ORDERED: POTASSIUM CHL 20 Meq TABLET PO ONE (14:30)
[2022-03-07 17:00] VITALS: BP 104/47
[2022-03-07] MEDS: HYDROcodone-ACET 5/325MG TAB PO PRN (20:33)
[2022-03-07] MEDS: metroNIDAZOLE 500 MG TAB PO SCH (21:34)
[2022-03-07 22:00] VITALS: BP 124/61
[2022-03-08] MEDS: ACETAMINOPHEN 325 MG TAB PO PRN (04:44)
[2022-03-08 05:00] VITALS: BP 132/75
[2022-03-08] MEDS: metroNIDAZOLE 500 MG TAB PO SCH (05:50)
[2022-03-08] MEDS: ACCU-CHEK COMFORT CURVE STRIP VI SCH ×3 (05:58→12:00)
[2022-03-08] MEDS: InsuLIN REG 1unit/0.01ml Soln (100units/ml) SC SCH ×3 (05:59→12:00)
[2022-03-08] MEDS: HYDROcodone-ACET 5/325MG TAB PO PRN (06:45)
[2022-03-08 09:00] VITALS: BP 115/70
[2022-03-08 09:20] LABS: BUN/Creatinine Ratio 14.3; Calcium 7.6 mg/dL (8.5-10.1); Potassium 3.2 mmol/L (3.5-5.1)
[2022-03-08] MEDS: cefTRIAXone 1GM/50ML D5W 50 ML IV SCH (09:37)
[2022-03-08] MEDS ORDERED: POTASSIUM CHL 20 Meq TABLET PO ONE (11:45)
== END 2022-03-08 13:33 | disposition home or self-care (01) | DRG 872 ==
LOC: ER 09:29 → OVERFLOW 21:45 → WEST WING 23:41
PROVIDERS: ADMIT Nurse Practitioner; ATTEND Internal Medicine
DX: A41.9 Sepsis, unspecified organism (principal); K57.32 Diverticulitis of large intestine without perforation or abscess without bleeding; K76.6 Portal hypertension; K80.00 Calculus of gallbladder with acute cholecystitis without obstruction; R74.01 Elevation of levels of liver transaminase levels; E66.9 Obesity, unspecified; K74.60 Unspecified cirrhosis of liver; I10 Essential (primary) hypertension; E80.6 Other disorders of bilirubin metabolism; Z20.822 Contact with and (suspected) exposure to COVID-19; E11.9 Type 2 diabetes mellitus without complications; M19.90 Unspecified osteoarthritis, unspecified site; Z90.49 Acquired absence of other specified parts of digestive tract; Z79.891 Long term (current) use of opiate analgesic; Z79.899 Other long term (current) drug therapy; Z79.84 Long term (current) use of oral hypoglycemic drugs; Z68.37 Body mass index [BMI] 37.0-37.9, adult
CPT/HCPCS: 36415; 74176; 78226; 80048; 80053; 82962; 83880; 85025; 93005; G0378; J0696; J1815; J3490

== ENCOUNTER 2022-03-04 17:07 | Emergency (ER) | payer OTHER | END 2022-03-05 00:18 | disposition left against medical advice (07) | LOC: ER 17:07 | DX: R10.9 Unspecified abdominal pain (principal); Z53.21 Procedure and treatment not carried out due to patient leaving prior to being seen by health care provider | CPT/HCPCS: 82962 ==

== ENCOUNTER → 2022-04-09 | Outpatient (CLI) | payer OTHER ==
[~2022-04-09] MED LIST changes: -GLIM-5 PO; -HYDR-4188 PO
[2022-04-09 10:30] LABS: INR 1.07 (0.9-1.15)
[2022-04-09 10:59] LABS: Calcium 8.6 mg/dL (8.5-10.1); Magnesium 1.8 mg/dL (1.6-2.6); Potassium 3.4 mmol/L (3.5-5.1)
== END | disposition home or self-care (01) ==
LOC: LAB 09:51
PROVIDERS: ATTEND Internal Medicine
DX: R76.8 Other specified abnormal immunological findings in serum (principal); M79.2 Neuralgia and neuritis, unspecified; K74.3 Primary biliary cirrhosis
CPT/HCPCS: 36415; 82310; 82607; 83735; 84132; 84450; 84460; 85610

== ENCOUNTER → 2022-04-16 | Outpatient (CLI) | payer OTHER ==
[2022-04-16 08:59] LABS: Basophils # (auto) 0 10 ^3/uL (0-0.2); Basophils % (auto) 0.5 % (0.0-2.0); Eosinophils # (auto) 0.2 10 ^3/uL (0-0.8); Eosinophils % (auto) 4.7 % (0.0-7.0); Hematocrit 39.7 % (36.0-46.0); Hemoglobin 13.9 g/dL (12.2-16.2); Lymphocytes % (auto) 29.9 % (10.0-50.0); Mean Corpuscular Hemoglobin 32.7 pg (28.0-32.0); Mean Corpuscular Volume 93.4 fL (80.0-100.0); Monocytes # (auto) 0.4 10 ^3/uL (0-1.3); Monocytes % (auto) 11.4 % (0.0-12.0); Neutrophils # (auto) 1.8 10 ^3/uL (1.6-8.6); Neutrophils % (auto) 53.5 % (37.0-80.0); Nucleated Red Blood Cells % 0.1 %; Red Blood Cells 4.25 10^6/uL (4.0-5.20); White Blood Cell 3.4 10^3/uL (4.4-10.8)
[2022-04-16 09:16] LABS: INR 1.08 (0.9-1.15)
[2022-04-16 09:45] LABS: Albumin 2.8 g/dL (3.4-5.0); Calcium 8.1 mg/dL (8.5-10.1); Potassium 3.3 mmol/L (3.5-5.1)
[2022-04-16 09:49] LABS: BUN/Creatinine Ratio 21.8; Bilirubin, Total 0.9 mg/dL (0.2-1.0); Total Protein 6.5 g/dL (6.4-8.2)
[2022-04-16 10:04] LABS: % Iron Saturation 22.3 % (15-50)
== END | disposition home or self-care (01) ==
LOC: LAB 08:11
PROVIDERS: ATTEND Physician Assistant
DX: K74.69 Other cirrhosis of liver (principal); E66.9 Obesity, unspecified; R03.0 Elevated blood-pressure reading, without diagnosis of hypertension
CPT/HCPCS: 36415; 80053; 82103; 82105; 82390; 83540; 83550; 85025; 85610; 86038; 86704; 86708; 87340

== ENCOUNTER → 2022-05-01 | Outpatient (CLI) | payer OTHER ==
[2022-05-01 12:56] LABS: Basophils # (auto) 0 10 ^3/uL (0-0.2); Basophils % (auto) 0.2 % (0.0-2.0); Eosinophils # (auto) 0 10 ^3/uL (0-0.8); Eosinophils % (auto) 0.4 % (0.0-7.0); Hematocrit 37.7 % (36.0-46.0); Hemoglobin 12.8 g/dL (12.2-16.2); Lymphocytes # (auto) 1.1 10 ^3/uL (0.4-5.4); Lymphocytes % (auto) 12.4 % (10.0-50.0); Mean Corpuscular Volume 94.1 fL (80.0-100.0); Monocytes # (auto) 1.1 10 ^3/uL (0-1.3); Monocytes % (auto) 12.5 % (0.0-12.0); Neutrophils # (auto) 6.4 10 ^3/uL (1.6-8.6); Neutrophils % (auto) 74.5 % (37.0-80.0); Nucleated Red Blood Cells % 0.1 %; Red Blood Cells 4.01 10^6/uL (4.0-5.20); Red Cell Distribution Width 14.5 % (11.8-14.3); White Blood Cell 8.6 10^3/uL (4.4-10.8)
[2022-05-01 13:10] LABS: Urine Bacteria FEW /hpf (None Seen); Urine Blood Negative /uL (Negative); Urine Specific Gravity 1.007 (1.001-1.035); Urine WBC <1 /hpf (0 - 5)
[2022-05-01 13:23] LABS: Calcium 8.2 mg/dL (8.5-10.1); Potassium 3.2 mmol/L (3.5-5.1)
[2022-05-01 13:26] LABS: BUN/Creatinine Ratio 23.2
== END | disposition home or self-care (01) ==
LOC: LAB 12:31
PROVIDERS: ATTEND Internal Medicine
DX: R31.9 Hematuria, unspecified (principal); M79.10 Myalgia, unspecified site
CPT/HCPCS: 36415; 80048; 81001; 82550; 85025

== ENCOUNTER → 2022-06-20 | Day surgery (SDC) | payer OTHER ==
[2022-06-19 15:04] LABS: Basophils # (auto) 0 10 ^3/uL (0-0.2); Basophils % (auto) 0.8 % (0.0-2.0)
[2022-06-19 15:06] LABS: Eosinophils # (auto) 0.3 10 ^3/uL (0-0.8); Eosinophils % (auto) 4.8 % (0.0-7.0); Hematocrit 42.2 % (36.0-46.0); Hemoglobin 14.7 g/dL (12.2-16.2); Lymphocytes # (auto) 1.5 10 ^3/uL (0.4-5.4); Lymphocytes % (auto) 24.4 % (10.0-50.0); Mean Corpuscular Hemoglobin 32.4 pg (28.0-32.0); Mean Corpuscular Hgb Conc. 34.8 g/dL (32.0-36.0); Mean Corpuscular Volume 93.1 fL (80.0-100.0); Monocytes # (auto) 0.8 10 ^3/uL (0-1.3); Monocytes % (auto) 12.9 % (0.0-12.0); Neutrophils # (auto) 3.5 10 ^3/uL (1.6-8.6); Neutrophils % (auto) 57.1 % (37.0-80.0); Nucleated Red Blood Cells % 0.1 %; Red Blood Cells 4.53 10^6/uL (4.0-5.20); White Blood Cell 6.1 10^3/uL (4.4-10.8)
[2022-06-19 15:14] LABS: INR 1.07 (0.9-1.15); Partial Thromboplastin Time 28.8 sec (24.6-33.4)
[2022-06-19 15:33] LABS: Albumin 3.1 g/dL (3.4-5.0); BUN/Creatinine Ratio 26.2; Calcium 8.8 mg/dL (8.5-10.1); Potassium 3.9 mmol/L (3.5-5.1)
[2022-06-19 15:35] LABS: Bilirubin, Total 1.1 mg/dL (0.2-1.0); Total Protein 7.6 g/dL (6.4-8.2)
[~2022-06-20] VITALS: Ht 154.9 cm; Wt 81.6 kg
[~2022-06-20] MED LIST changes: +FLUMAZENIL 0.1 MG/ML INJ 10ML MDV IV ONE; -FURO1TAB31 PO; -HYDR-4902 PO; -LEVO-28 PO; -LEVO500T31 PO; +LIDOCAINE VISCOUS 2% 15ML UD ONE; -MET500T PO; -METR500T PO; +NALOXONE HCL 0.4 MG/ML VIAL ONE; -POTA-180 PO; +SODIUM CHLORIDE LOCK 10 ML ONE; +diphenhdrAMINE HCL 50 MG/1 ML VL ONE
[2022-06-20] MEDS: fentaNYL CITRATE 100 MCG/2 ML VL ONE ×2 (10:55→10:58)
[2022-06-20] MEDS: MIDAZOLAM HCL 2MG/2ML 2ml VIAL (1mg/ml) ONE ×2 (10:55→10:58)
[2022-06-20 11:30] VITALS: BP 104/65
== END | disposition home or self-care (01) ==
LOC: GI 09:26
PROVIDERS: ATTEND Internal Medicine Gastroenterology
DX: K74.60 Unspecified cirrhosis of liver (principal); I85.10 Secondary esophageal varices without bleeding; K76.6 Portal hypertension; K31.89 Other diseases of stomach and duodenum; K44.9 Diaphragmatic hernia without obstruction or gangrene
CPT/HCPCS: 36415; 43235; 80053; 85025; 85610; 85730; J1200; J2250; J3010; U0003

== ENCOUNTER → 2022-11-19 | Outpatient (CLI) | payer OTHER ==
[2022-11-19 12:13] LABS: Basophils # (auto) 0 10 ^3/uL (0-0.2); Basophils % (auto) 0.7 % (0.0-2.0); Eosinophils # (auto) 0.2 10 ^3/uL (0-0.8); Eosinophils % (auto) 5.7 % (0.0-7.0); Hematocrit 40.5 % (36.0-46.0); Hemoglobin 14.3 g/dL (12.2-16.2); Lymphocytes # (auto) 1.1 10 ^3/uL (0.4-5.4); Lymphocytes % (auto) 26.2 % (10.0-50.0); Mean Corpuscular Hemoglobin 33.3 pg (28.0-32.0); Mean Corpuscular Hgb Conc. 35.2 g/dL (32.0-36.0); Mean Corpuscular Volume 94.4 fL (80.0-100.0); Monocytes # (auto) 0.6 10 ^3/uL (0-1.3); Monocytes % (auto) 14.6 % (0.0-12.0); Neutrophils # (auto) 2.2 10 ^3/uL (1.6-8.6); Neutrophils % (auto) 52.8 % (37.0-80.0); Nucleated Red Blood Cells % 0.1 %; Red Blood Cells 4.29 10^6/uL (4.0-5.20); Red Cell Distribution Width 14.5 % (11.8-14.3); White Blood Cell 4.2 10^3/uL (4.4-10.8)
[2022-11-19 13:19] LABS: Albumin 2.8 g/dL (3.4-5.0); Calcium 8.1 mg/dL (8.5-10.1); Potassium 3.6 mmol/L (3.5-5.1)
[2022-11-19 13:24] LABS: BUN/Creatinine Ratio 22.2 (10.0-20.0); Total Protein 7.1 g/dL (6.4-8.2)
[2022-11-19 13:26] LABS: Free T4 (Free Thyroxine) 1.04 ng/dL (0.89-1.76)
== END | disposition home or self-care (01) ==
LOC: LAB 11:55
PROVIDERS: ATTEND Internal Medicine
DX: E11.9 Type 2 diabetes mellitus without complications (principal); K74.3 Primary biliary cirrhosis
CPT/HCPCS: 36415; 80053; 80061; 82607; 83036; 84439; 84443; 85025; 85652

== ENCOUNTER → 2023-03-21 | Outpatient (CLI) | payer OTHER | END | disposition home or self-care (01) | LOC: LAB 08:50 | PROVIDERS: ATTEND Family Medicine | DX: L82.1 Other seborrheic keratosis (principal); L98.9 Disorder of the skin and subcutaneous tissue, unspecified | CPT/HCPCS: 88302 ==

== ENCOUNTER → 2023-05-28 | Outpatient (CLI) | payer OTHER ==
[2023-05-28 09:38] LABS: Basophils # (auto) 0 10 ^3/uL (0-0.2); Basophils % (auto) 0.5 % (0.0-2.0); Eosinophils # (auto) 0.2 10 ^3/uL (0-0.8); Eosinophils % (auto) 4.7 % (0.0-7.0); Hematocrit 42.5 % (36.0-46.0); Hemoglobin 14.4 g/dL (12.2-16.2); Lymphocytes # (auto) 1.2 10 ^3/uL (0.4-5.4); Lymphocytes % (auto) 28.5 % (10.0-50.0); Mean Corpuscular Hemoglobin 32.9 pg (28.0-32.0); Mean Corpuscular Volume 96.9 fL (80.0-100.0); Monocytes # (auto) 0.5 10 ^3/uL (0-1.3); Monocytes % (auto) 12.5 % (0.0-12.0); Neutrophils # (auto) 2.3 10 ^3/uL (1.6-8.6); Neutrophils % (auto) 53.8 % (37.0-80.0); Nucleated Red Blood Cells % 0.1 %; Red Blood Cells 4.39 10^6/uL (4.0-5.20); Red Cell Distribution Width 14.9 % (11.8-14.3); White Blood Cell 4.3 10^3/uL (4.4-10.8)
[2023-05-28 09:51] LABS: INR 1.1 (0.9-1.15); Prothrombin Time 11.5 sec (9.3-11.8)
[2023-05-28 10:28] LABS: Alanine Aminotransferase 23 U/L (7-40); Albumin 3.7 g/dL (3.2-4.8); Alkaline Phosphatase 193 U/L (46-116); Anion Gap 7 (5-15); Aspartate Aminotransferase 41 U/L (13-40); BUN/Creatinine Ratio 10.3 (10.0-20.0); Bilirubin, Total 1.2 mg/dL (0.2-1.0); Blood Urea Nitrogen 6 mg/dL (9-23); Calcium 9.1 mg/dL (8.5-10.1); Carbon Dioxide 28 mmol/L (20-30); Chloride 107 mmol/L (98-107); Glucose 134 mg/dL (74-106); Potassium 3.4 mmol/L (3.5-5.1); Sodium 142 mmol/L (136-145); Total Protein 6.8 g/dL (5.7-8.2)
[2023-05-28 10:45] LABS: Urine Bacteria NONE SEEN /hpf (None Seen); Urine Blood Negative /uL (Negative); Urine Clarity Clear (Clear); Urine Color Yellow (Yellow); Urine Hyaline Cast FEW /lpf (0 - 2); Urine Mucus FEW (None Seen); Urine Protein, UAD Negative (Negative); Urine Specific Gravity 1.016 (1.001-1.035); Urine Urobilinogen Normal (Negative); Urine WBC 1 /hpf (0 - 5); Urine pH 6.5 (5.0-8.0)
== END | disposition home or self-care (01) ==
LOC: LAB 09:10
PROVIDERS: ATTEND Internal Medicine Gastroenterology
DX: K74.60 Unspecified cirrhosis of liver (principal)
CPT/HCPCS: 36415; 80053; 81001; 82105; 85025; 85610

== ENCOUNTER 2023-07-21 10:33 | Inpatient (IN) | payer OTHER ==
[~2023-07-21] VITALS: Ht 154.9 cm; Wt 94.0 kg
[2023-07-21] MEDS ORDERED: KETOROLAC TROMETH 60MG/2ML VIAL IM ONE (11:00)
[2023-07-21] MEDS ORDERED: MAALOX PLUS or MAALOX 30 ML PO ONE (11:00)
[2023-07-21] MEDS ORDERED: ONDANSETRON ODT 4 MG TAB PO ONE (11:00)
[2023-07-21] MEDS ORDERED: LIDOCAINE VISCOUS 2% 15ML UD PO ONE (11:00)
[2023-07-21] MEDS ORDERED: DONNATAL 5ml ORAL Elix (BELLADONNA ALK-PHENOBARB) PO ONE (11:00)
[2023-07-21 11:35] LABS: Basophils # (auto) 0 10 ^3/uL (0-0.2); Basophils % (auto) 0.3 % (0.0-2.0); Eosinophils # (auto) 0 10 ^3/uL (0-0.8); Eosinophils % (auto) 0.5 % (0.0-7.0); Hematocrit 42.9 % (36.0-46.0); Hemoglobin 14.6 g/dL (12.2-16.2); Lymphocytes # (auto) 0.3 10 ^3/uL (0.4-5.4); Mean Corpuscular Hemoglobin 33.6 pg (28.0-32.0); Mean Corpuscular Hgb Conc. 34.1 g/dL (32.0-36.0); Mean Corpuscular Volume 98.5 fL (80.0-100.0); Monocytes # (auto) 0.7 10 ^3/uL (0-1.3); Monocytes % (auto) 10.1 % (0.0-12.0); Neutrophils # (auto) 5.5 10 ^3/uL (1.6-8.6); Neutrophils % (auto) 84.1 % (37.0-80.0); Red Blood Cells 4.36 10^6/uL (4.0-5.20); White Blood Cell 6.5 10^3/uL (4.4-10.8)
[2023-07-21 11:41] LABS: Urine Bacteria FEW /hpf (None Seen); Urine Blood Negative /uL (Negative); Urine Clarity HAZY (Clear); Urine Color Brown (Yellow); Urine Hyaline Cast MANY /lpf (0 - 2); Urine Mucus FEW (None Seen); Urine Protein, UAD 1+ (Negative); Urine Specific Gravity 1.034 (1.001-1.035); Urine WBC 12 /hpf (0 - 5)
[2023-07-21 11:46] LABS: INR 1.4 (0.9-1.15); Partial Thromboplastin Time 30.5 SEC (24.5-34.5); Prothrombin Time 14.4 sec (9.3-11.8)
[2023-07-21 11:50] LABS: Alanine Aminotransferase 49 U/L (7-40); Albumin 3.5 g/dL (3.2-4.8); Alkaline Phosphatase 169 U/L (46-116); Anion Gap 7 (5-15); Aspartate Aminotransferase 75 U/L (13-40); BUN/Creatinine Ratio 33.3 (10.0-20.0); Bilirubin, Total 5.5 mg/dL (0.2-1.0); Blood Urea Nitrogen 28 mg/dL (9-23); Calcium 8.1 mg/dL (8.7-10.4); Carbon Dioxide 26 mmol/L (20-30); Chloride 104 mmol/L (98-107); Glucose 101 mg/dL (74-106); Lipase 32 U/L (12-53); Potassium 3.5 mmol/L (3.5-5.1); Sodium 137 mmol/L (136-145); Total Protein 6.3 g/dL (5.7-8.2)
[2023-07-21] MEDS ORDERED: metroNIDAZOLE 500MG/100ML 100 ML IV ONE (12:30)
[2023-07-21] MEDS ORDERED: PIPERACILLIN-TAZOB 3.375GM 100 ML IV ONE (12:30)
[2023-07-21 14:22] VITALS: PULSE 75; PULSE 76; RESP 18; RESP 22; O2SAT 95; O2SAT 97
[2023-07-21] MEDS ORDERED: ONDANSETRON HCL 4 MG/2 ML VIAL IV PRN (14:30)
[2023-07-21] MEDS ORDERED: DOCUSATE SOD 100 MG CAP PO PRN (14:30)
[2023-07-21] MEDS ORDERED: URSO1TAB8 PO (14:43)
[2023-07-21] MEDS ORDERED: POTA8TAB38 PO (14:43)
[2023-07-21] MEDS ORDERED: SODIUM CHLORIDE 0.9% 1,000 ML IV ONE (15:00)
[2023-07-21] MEDS ORDERED: POTASSIUM CHLORIDE 8 MEQ TAB PO ONE (15:30)
[2023-07-21 19:42] VITALS: PULSE 79; RESP 18; O2SAT 92
[2023-07-21] MEDS: ACETAMINOPHEN 325 MG TAB PO PRN (21:36)
[2023-07-21] MEDS ORDERED: TEMAZEPAM 15 MG CAP PO ONE (21:45)
[2023-07-21] MEDS: URSODIOL 500MG TABLET PO SCH (22:00)
[2023-07-21] MEDS: metroNIDAZOLE 500MG/100ML 100 ML IV SCH (22:06)
[2023-07-22] VITALS (10 sets, daily range): BP systolic 111–135; BP diastolic 50–68; PULSE 74–99; RESP 16–19; TEMP 97.9–98.6; O2SAT 87–98
[2023-07-22] MEDS ORDERED: HYDROcodone-ACET 5/325MG TAB PO ONE (00:30)
[2023-07-22] MEDS: metroNIDAZOLE 500MG/100ML 100 ML IV SCH ×3 (05:21→21:06)
[2023-07-22 06:41] LABS: Basophils # (auto) 0 10 ^3/uL (0-0.2); Basophils % (auto) 0.3 % (0.0-2.0); Eosinophils # (auto) 0.1 10 ^3/uL (0-0.8); Eosinophils % (auto) 2.1 % (0.0-7.0); Hematocrit 39.3 % (36.0-46.0); Hemoglobin 13.5 g/dL (12.2-16.2); Lymphocytes # (auto) 0.3 10 ^3/uL (0.4-5.4); Lymphocytes % (auto) 5.8 % (10.0-50.0); Mean Corpuscular Hemoglobin 33.7 pg (28.0-32.0); Mean Corpuscular Hgb Conc. 34.3 g/dL (32.0-36.0); Mean Corpuscular Volume 98.1 fL (80.0-100.0); Monocytes # (auto) 0.7 10 ^3/uL (0-1.3); Monocytes % (auto) 15.8 % (0.0-12.0); Neutrophils # (auto) 3.5 10 ^3/uL (1.6-8.6); Nucleated Red Blood Cells % 0.4 %; Red Blood Cells 4.01 10^6/uL (4.0-5.20); Red Cell Distribution Width 13.9 % (11.8-14.3); White Blood Cell 4.7 10^3/uL (4.4-10.8)
[2023-07-22 06:53] LABS: Alanine Aminotransferase 38 U/L (7-40); Albumin 3.3 g/dL (3.2-4.8); Alkaline Phosphatase 162 U/L (46-116); Anion Gap 4 (5-15); Aspartate Aminotransferase 61 U/L (13-40); BUN/Creatinine Ratio 29.9 (10.0-20.0); Blood Urea Nitrogen 29 mg/dL (9-23); Calcium 8.6 mg/dL (8.5-10.1); Carbon Dioxide 30 mmol/L (20-30); Chloride 103 mmol/L (98-107); Glucose 115 mg/dL (74-106); Potassium 3.3 mmol/L (3.5-5.1); Sodium 137 mmol/L (136-145)
[2023-07-22 06:54] LABS: Total Protein 6.2 g/dL (5.7-8.2)
[2023-07-22] MEDS: POTASSIUM CHLORIDE 8 MEQ TAB PO SCH (09:21)
[2023-07-22] MEDS: cefTRIAXone 1GM/50ML D5W 50 ML IV SCH (09:21)
[2023-07-22] MEDS ORDERED: PANTOPRAZOLE 40 MG TAB PO SCH (10:00)
[2023-07-22] MEDS: URSODIOL 500MG TABLET PO SCH ×2 (10:00→21:07)
[2023-07-22] MEDS ORDERED: POTASSIUM CHLORIDE 40 MEQ, LIDOCAINE 1% (LOCAL ANESTH.) 4 ML in SODIUM CHL 0.9% 250 ML IV ONE (10:45)
[2023-07-22 11:17] LABS: CRP High Sensitivity 16.02 mg/dL (<1.0)
[2023-07-22 11:20] LABS: Magnesium 2.6 mg/dL (1.6-2.6)
[2023-07-22 11:28] LABS: Amphetamine Screen, Urine Neg (NEGATIVE)
[2023-07-22 11:29] LABS: Barbiturate Scree,Urine Neg (NEGATIVE); Benzodiazephine Screen, Urine Neg (NEGATIVE); Cannabinoid Screen, Urine Neg (NEGATIVE); Cocaine Screen, Urine Neg (NEGATIVE); Opiate Scree,Urine Neg (NEGATIVE); Phencyclidine Screen, Urine Neg (NEGATIVE)
[2023-07-22] MEDS ORDERED: ERGOCALCIFEROL 50,000 UNIT(1.25MG) CAP PO SCH (12:00)
[2023-07-22] MEDS: predniSONE 20 MG TAB PO SCH (21:06)
[2023-07-22] MEDS: ACETAMINOPHEN 325 MG TAB PO PRN (21:15)
[2023-07-22 23:11] LABS: Urine Bacteria NONE SEEN /hpf (None Seen); Urine Blood Negative /uL (Negative); Urine Clarity Clear (Clear); Urine Color Yellow (Yellow); Urine Protein, UAD TRACE (Negative); Urine Specific Gravity 1.025 (1.001-1.035); Urine Urobilinogen Normal (Negative); Urine WBC 2 /hpf (0 - 5)
[2023-07-23 05:00] VITALS: BP 104/59; PULSE 63; RESP 19; TEMP 97.6; O2SAT 97
[2023-07-23] MEDS: metroNIDAZOLE 500MG/100ML 100 ML IV SCH ×2 (05:20→16:10)
[2023-07-23 05:23] LABS: Basophils # (auto) 0 10 ^3/uL (0-0.2); Basophils % (auto) 0.1 % (0.0-2.0); Eosinophils # (auto) 0 10 ^3/uL (0-0.8); Eosinophils % (auto) 0.2 % (0.0-7.0); Hematocrit 40.9 % (36.0-46.0); Hemoglobin 13.6 g/dL (12.2-16.2); Lymphocytes # (auto) 0.4 10 ^3/uL (0.4-5.4); Lymphocytes % (auto) 11.8 % (10.0-50.0); Mean Corpuscular Hemoglobin 32.7 pg (28.0-32.0); Mean Corpuscular Hgb Conc. 33.3 g/dL (32.0-36.0); Mean Corpuscular Volume 98.3 fL (80.0-100.0); Monocytes # (auto) 0.3 10 ^3/uL (0-1.3); Monocytes % (auto) 8.5 % (0.0-12.0); Neutrophils # (auto) 2.6 10 ^3/uL (1.6-8.6); Neutrophils % (auto) 79.4 % (37.0-80.0); Nucleated Red Blood Cells % 0.1 %; Red Blood Cells 4.16 10^6/uL (4.0-5.20); White Blood Cell 3.3 10^3/uL (4.4-10.8)
[2023-07-23] MEDS: ACETAMINOPHEN 325 MG TAB PO PRN (05:31)
[2023-07-23 05:44] LABS: Albumin 3.1 g/dL (3.2-4.8); Alkaline Phosphatase 169 U/L (46-116); Anion Gap 6 (5-15); Aspartate Aminotransferase 66 U/L (13-40); Bilirubin, Total 3.9 mg/dL (0.2-1.0); Blood Urea Nitrogen 13 mg/dL (9-23); Calcium 8.1 mg/dL (8.7-10.4); Carbon Dioxide 25 mmol/L (20-30); Chloride 107 mmol/L (98-107); Glucose 142 mg/dL (74-106); Lipase 42 U/L (12-53); Potassium 4.5 mmol/L (3.5-5.1); Sodium 138 mmol/L (136-145)
[2023-07-23 06:27] LABS: Alanine Aminotransferase 37 U/L (7-40)
[2023-07-23 06:35] LABS: CRP High Sensitivity 11.47 mg/dL (<1.0)
[2023-07-23 08:00] VITALS: PULSE 63; RESP 14; O2SAT 99
[2023-07-23] MEDS: cefTRIAXone 1GM/50ML D5W 50 ML IV SCH (08:29)
[2023-07-23 08:46] VITALS: BP 133/69; PULSE 63; RESP 14; TEMP 97.4; O2SAT 99
[2023-07-23] MEDS ORDERED: PANTOPRAZOLE 40 MG/10 ML VIAL INJ IV SCH (10:00)
[2023-07-23] MEDS: predniSONE 20 MG TAB PO SCH (11:56)
[2023-07-23] MEDS: URSODIOL 500MG TABLET PO SCH (11:56)
[2023-07-23] MEDS: POTASSIUM CHLORIDE 8 MEQ TAB PO SCH (11:56)
[2023-07-23 13:00] VITALS: BP 118/66; PULSE 66; RESP 14; TEMP 98.6; O2SAT 90
[2023-07-23] MEDS ORDERED: PRED20TA2 PO (13:47)
[2023-07-23] MEDS ORDERED: PANT40T PO (13:47)
[2023-07-23] MEDS ORDERED: ERGO1CAP23 PO (13:47)
[2023-07-23] MEDS ORDERED: CIPR250T26 GT ×2 (13:47)
[2023-07-23] MEDS ORDERED: MET500T PO (13:47)
[2023-07-23] MEDS ORDERED: LEVO500T91 PO (15:11)
[2023-07-23 15:37] VITALS: BP 118/66; PULSE 66; RESP 14; TEMP 98.6
[2023-07-23 17:00] VITALS: BP 127/74; PULSE 68; RESP 18; TEMP 97.3; O2SAT 90
== END 2023-07-23 17:23 | disposition home or self-care (01) | DRG 432 ==
LOC: ER 10:33 → OVERFLOW 14:42 → CENTRAL 23:44
PROVIDERS: ADMIT Internal Medicine; ATTEND Internal Medicine
DX: K74.3 Primary biliary cirrhosis (principal); I21.A1 Myocardial infarction type 2; K57.32 Diverticulitis of large intestine without perforation or abscess without bleeding; D68.9 Coagulation defect, unspecified; E66.01 Morbid (severe) obesity due to excess calories; I10 Essential (primary) hypertension; D69.6 Thrombocytopenia, unspecified; F10.10 Alcohol abuse, uncomplicated; E87.6 Hypokalemia; E80.6 Other disorders of bilirubin metabolism; K76.0 Fatty (change of) liver, not elsewhere classified; E11.9 Type 2 diabetes mellitus without complications; R31.9 Hematuria, unspecified; Y90.9 Presence of alcohol in blood, level not specified; E55.9 Vitamin D deficiency, unspecified; Z90.710 Acquired absence of both cervix and uterus; Z68.39 Body mass index [BMI] 39.0-39.9, adult; Z83.3 Family history of diabetes mellitus; Z80.7 Family history of other malignant neoplasms of lymphoid, hematopoietic and related tissues
CPT/HCPCS: 36415; 74176; 76705; 78226; 80053; 80061; 80307; 80320; 81001; 82306; 82550; 82607; 83036; 83605; 83690; 83735; 84443; 84484; 85025; 85610; 85730; 86141; 87040; 87086; 96365; 96367; 96375; 97163; 99291; C9113; G0378; J1885; J2001; J2543; J3490; Q0162

== ENCOUNTER 2023-08-06 01:52 | Emergency (ER) | payer OTHER ==
[~2023-08-06] VITALS: Ht 154.9 cm; Wt 90.0 kg
[~2023-08-06 01:52] MED LIST changes: +ERGO1CAP23 PO; -FLUMAZENIL 0.1 MG/ML INJ 10ML MDV IV ONE; +LEVO500T91 PO; -LIDOCAINE VISCOUS 2% 15ML UD ONE; +MET500T PO; -NALOXONE HCL 0.4 MG/ML VIAL ONE; +PANT40T PO; +POTA8TAB38 PO; +PRED20TA2 PO; -SODIUM CHLORIDE LOCK 10 ML ONE; +URSO1TAB8 PO; -diphenhdrAMINE HCL 50 MG/1 ML VL ONE
[2023-08-06 04:28] LABS: Basophils # (auto) 0 10 ^3/uL (0-0.2); Basophils % (auto) 0.1 % (0.0-2.0); Eosinophils # (auto) 0 10 ^3/uL (0-0.8); Eosinophils % (auto) 0.1 % (0.0-7.0); Hemoglobin 14.4 g/dL (12.2-16.2); Lymphocytes # (auto) 0.2 10 ^3/uL (0.4-5.4); Lymphocytes % (auto) 2.1 % (10.0-50.0); Mean Corpuscular Hemoglobin 33.1 pg (28.0-32.0); Mean Corpuscular Hgb Conc. 33.5 g/dL (32.0-36.0); Mean Corpuscular Volume 98.8 fL (80.0-100.0); Monocytes % (auto) 9.5 % (0.0-12.0); Neutrophils % (auto) 88.2 % (37.0-80.0); Red Blood Cells 4.36 10^6/uL (4.0-5.20); White Blood Cell 10.1 10^3/uL (4.4-10.8)
[2023-08-06 04:38] LABS: Alanine Aminotransferase 44 U/L (7-40); Albumin 3.5 g/dL (3.2-4.8); Alkaline Phosphatase 208 U/L (46-116); Anion Gap 8 (5-15); Aspartate Aminotransferase 89 U/L (13-40); BUN/Creatinine Ratio 16.4 (10.0-20.0); Bilirubin, Total 5.4 mg/dL (0.2-1.0); Blood Urea Nitrogen 10 mg/dL (9-23); Calcium 8.6 mg/dL (8.7-10.4); Carbon Dioxide 26 mmol/L (20-30); Chloride 104 mmol/L (98-107); Glucose 157 mg/dL (74-106); Potassium 3.5 mmol/L (3.5-5.1); Sodium 138 mmol/L (136-145); Total Protein 6.9 g/dL (5.7-8.2)
[2023-08-06 04:39] LABS: INR 1.1 (0.9-1.15); Partial Thromboplastin Time 26.3 SEC (24.5-34.5); Prothrombin Time 11.5 sec (9.3-11.8)
[2023-08-06 04:45] LABS: Lipase 2503 U/L (12-53)
[2023-08-06 04:59] LABS: Lactic Acid w/Reflex 2.2 mmol/L (0.4-2.0)
[2023-08-06] MEDS: IOHEXOL 350 MG/ML 100ML IJ ONE (05:25)
[2023-08-06] MEDS: SODIUM CHLORIDE 0.9% 1,000 ML IVB ONE (05:31)
[2023-08-06] MEDS: ONDANSETRON HCL 4 MG/2 ML VIAL IV ONE (05:31)
[2023-08-06] MEDS: MORPHINE SULFATE 4 MG/ML SYR/VIAL IV ONE (05:34)
[2023-08-06] MEDS: SODIUM CHLORIDE 0.9% 2,700 ML IV ONE (10:34)
[2023-08-06] MEDS: VANCOMYCIN PER PHARMACY 0 MG IV SCH (10:37)
[2023-08-06] MEDS: PIPERACILLIN-TAZOB 3.375GM 100 ML IV ONE (11:09)
[2023-08-06 12:05] VITALS: BP 101/55; PULSE 84; RESP 17; TEMP 99.1; O2SAT 96
[2023-08-06] MEDS: VANCOMYCIN 1GM/200ML 200 ML IV ONE (12:18)
[2023-08-07] MEDS ORDERED: VANCOMYCIN 1GM/200ML 200 ML IV SCH (12:00)
== END 2023-08-06 12:38 | disposition short-term general hospital (02) ==
LOC: ER 01:52
DX: K81.9 Cholecystitis, unspecified (principal); K85.90 Acute pancreatitis without necrosis or infection, unspecified; K74.60 Unspecified cirrhosis of liver; K83.8 Other specified diseases of biliary tract; R79.89 Other specified abnormal findings of blood chemistry; I10 Essential (primary) hypertension; E11.9 Type 2 diabetes mellitus without complications; M19.90 Unspecified osteoarthritis, unspecified site; F10.90 Alcohol use, unspecified, uncomplicated; Z98.890 Other specified postprocedural states; Z79.899 Other long term (current) drug therapy; Y90.0 Blood alcohol level of less than 20 mg/100 ml
CPT/HCPCS: 36415; 71045; 74177; 76705; 80053; 83605; 83690; 84484; 85025; 85610; 85730; 87040; 93005; 96361; 96365; 96367; 96375; 99285; J2270; J2405; J2543; J3370; J7030; Q9967

== ENCOUNTER → 2023-08-18 | Outpatient (CLI) | payer OTHER ==
[2023-08-18 12:21] LABS: Basophils # (auto) 0 10 ^3/uL (0-0.2); Basophils % (auto) 0.5 % (0.0-2.0); Eosinophils # (auto) 0.1 10 ^3/uL (0-0.8); Eosinophils % (auto) 3.6 % (0.0-7.0); Hematocrit 43.6 % (36.0-46.0); Hemoglobin 14.8 g/dL (12.2-16.2); Lymphocytes % (auto) 25.8 % (10.0-50.0); Mean Corpuscular Hemoglobin 33.7 pg (28.0-32.0); Mean Corpuscular Volume 99.1 fL (80.0-100.0); Monocytes # (auto) 0.7 10 ^3/uL (0-1.3); Monocytes % (auto) 16.2 % (0.0-12.0); Neutrophils # (auto) 2.2 10 ^3/uL (1.6-8.6); Neutrophils % (auto) 53.9 % (37.0-80.0); Nucleated Red Blood Cells % 0.2 %; Red Cell Distribution Width 16.4 % (11.8-14.3)
[2023-08-18 12:46] LABS: Alanine Aminotransferase 42 U/L (7-40); Albumin 3.5 g/dL (3.2-4.8); Alkaline Phosphatase 208 U/L (46-116); Anion Gap 7 (5-15); Aspartate Aminotransferase 76 U/L (13-40); Blood Urea Nitrogen 6 mg/dL (9-23); Calcium 8.9 mg/dL (8.5-10.1); Carbon Dioxide 28 mmol/L (20-30); Chloride 106 mmol/L (98-107); Glucose 126 mg/dL (74-106); Potassium 3.8 mmol/L (3.5-5.1); Sodium 141 mmol/L (136-145)
[2023-08-18 12:47] LABS: Bilirubin, Total 3.3 mg/dL (0.2-1.0); Total Protein 7.3 g/dL (5.7-8.2)
== END | disposition home or self-care (01) ==
LOC: LAB 11:41
PROVIDERS: ATTEND Internal Medicine
DX: K74.3 Primary biliary cirrhosis (principal)
CPT/HCPCS: 36415; 80053; 85025

== ENCOUNTER → 2023-10-29 | Outpatient (CLI) | payer OTHER ==
[2023-10-29 06:40] LABS: Basophils # (auto) 0 10 ^3/uL (0-0.2); Basophils % (auto) 0.4 % (0.0-2.0); Eosinophils # (auto) 0.2 10 ^3/uL (0-0.8); Eosinophils % (auto) 4.4 % (0.0-7.0); Hematocrit 42.7 % (36.0-46.0); Hemoglobin 14.7 g/dL (12.2-16.2); Lymphocytes # (auto) 1.7 10 ^3/uL (0.4-5.4); Lymphocytes % (auto) 29.9 % (10.0-50.0); Mean Corpuscular Hgb Conc. 34.3 g/dL (32.0-36.0); Mean Corpuscular Volume 96.1 fL (80.0-100.0); Monocytes # (auto) 0.6 10 ^3/uL (0-1.3); Monocytes % (auto) 11.8 % (0.0-12.0); Neutrophils % (auto) 53.5 % (37.0-80.0); Nucleated Red Blood Cells % 0.2 %; Red Blood Cells 4.45 10^6/uL (4.0-5.20); White Blood Cell 5.5 10^3/uL (4.4-10.8)
[2023-10-29 06:54] LABS: INR 1.05 (0.9-1.15); Prothrombin Time 11.1 sec (9.3-11.8)
[2023-10-29 07:14] LABS: Erythrocyte Sedimentation Rate 19 mm/hr (0-20)
[2023-10-29 07:43] LABS: Alanine Aminotransferase 23 U/L (7-40); Alkaline Phosphatase 212 U/L (46-116); Calcium 9.3 mg/dL (8.5-10.1); Creatinine, Urine 94.63 mg/dL (30.0-125.0); Triglycerides 105 mg/dL (< 150)
[2023-10-29 07:44] LABS: Albumin 3.7 g/dL (3.2-4.8); Anion Gap 6 (5-15); Aspartate Aminotransferase 31 U/L (13-40); BUN/Creatinine Ratio 14.3 (10.0-20.0); Blood Urea Nitrogen 9 mg/dL (9-23); Carbon Dioxide 28 mmol/L (20-30); Chloride 106 mmol/L (98-107); Glucose 182 mg/dL (74-106); LDL Cholesterol 65 mg/dL (< 100); Potassium 3.6 mmol/L (3.5-5.1); Sodium 140 mmol/L (136-145)
[2023-10-29 07:45] LABS: Cholesterol 146 mg/dL (< 200); HDL Cholesterol 59 mg/dL (40-59); Total Protein 6.9 g/dL (5.7-8.2)
[2023-10-29 07:54] LABS: Free T4 (Free Thyroxine) 0.93 ng/dL (0.89-1.76)
== END | disposition home or self-care (01) ==
LOC: LAB 06:18
PROVIDERS: ATTEND Internal Medicine
DX: K74.60 Unspecified cirrhosis of liver (principal); E11.42 Type 2 diabetes mellitus with diabetic polyneuropathy
CPT/HCPCS: 36415; 80053; 80061; 82043; 82570; 82607; 83036; 84439; 84443; 85025; 85610; 85652

== ENCOUNTER → 2024-01-06 | Outpatient (CLI) | payer OTHER ==
[2024-01-06 09:39] LABS: Basophils # (auto) 0 10 ^3/uL (0-0.2); Basophils % (auto) 0.7 % (0.0-2.0); Eosinophils # (auto) 0.2 10 ^3/uL (0-0.8); Hematocrit 43.2 % (36.0-46.0); Lymphocytes # (auto) 1.4 10 ^3/uL (0.4-5.4); Lymphocytes % (auto) 26.3 % (10.0-50.0); Mean Corpuscular Hemoglobin 33.3 pg (28.0-32.0); Mean Corpuscular Hgb Conc. 34.8 g/dL (32.0-36.0); Mean Corpuscular Volume 95.6 fL (80.0-100.0); Monocytes # (auto) 0.7 10 ^3/uL (0-1.3); Monocytes % (auto) 12.9 % (0.0-12.0); Neutrophils # (auto) 3.1 10 ^3/uL (1.6-8.6); Neutrophils % (auto) 56.1 % (37.0-80.0); Nucleated Red Blood Cells % 0.1 %; Red Blood Cells 4.52 10^6/uL (4.0-5.20); White Blood Cell 5.5 10^3/uL (4.4-10.8)
[2024-01-06 09:59] LABS: INR 1.07 (0.9-1.15); Prothrombin Time 11.3 sec (9.3-11.8)
[2024-01-06 10:29] LABS: Alanine Aminotransferase 27 U/L (7-40); Albumin 3.7 g/dL (3.2-4.8); Alkaline Phosphatase 187 U/L (46-116); Anion Gap 7 (5-15); Aspartate Aminotransferase 35 U/L (13-40); BUN/Creatinine Ratio 9.7 (10.0-20.0); Bilirubin, Total 1.6 mg/dL (0.2-1.0); Blood Urea Nitrogen 6 mg/dL (9-23); Calcium 9.5 mg/dL (8.7-10.4); Carbon Dioxide 28 mmol/L (20-30); Chloride 106 mmol/L (98-107); Glucose 166 mg/dL (74-106); Potassium 4.1 mmol/L (3.5-5.1); Sodium 141 mmol/L (136-145); Total Protein 6.6 g/dL (5.7-8.2)
== END | disposition home or self-care (01) ==
LOC: LAB 09:25
PROVIDERS: ATTEND Internal Medicine Gastroenterology
DX: R94.5 Abnormal results of liver function studies (principal); K74.60 Unspecified cirrhosis of liver
CPT/HCPCS: 36415; 80053; 82105; 85025; 85610

== ENCOUNTER → 2024-03-08 | Outpatient (CLI) | payer OTHER ==
[2024-03-08 13:01] LABS: Basophils # (auto) 0 10 ^3/uL (0-0.2); Basophils % (auto) 0.8 % (0.0-2.0); Eosinophils # (auto) 0.2 10 ^3/uL (0-0.8); Eosinophils % (auto) 4.4 % (0.0-7.0); Hematocrit 43.5 % (36.0-46.0); Hemoglobin 15.2 g/dL (12.2-16.2); Lymphocytes # (auto) 1.2 10 ^3/uL (0.4-5.4); Lymphocytes % (auto) 28.4 % (10.0-50.0); Mean Corpuscular Hemoglobin 33.4 pg (28.0-32.0); Mean Corpuscular Hgb Conc. 34.8 g/dL (32.0-36.0); Monocytes # (auto) 0.6 10 ^3/uL (0-1.3); Monocytes % (auto) 13.5 % (0.0-12.0); Neutrophils # (auto) 2.2 10 ^3/uL (1.6-8.6); Neutrophils % (auto) 52.9 % (37.0-80.0); Nucleated Red Blood Cells % 0.1 %; Platelet Count (auto) 134 10^3/uL (140-450); Red Blood Cells 4.53 10^6/uL (4.0-5.20); Red Cell Distribution Width 14.2 % (11.8-14.3); White Blood Cell 4.2 10^3/uL (4.4-10.8)
[2024-03-08 14:05] LABS: Alanine Aminotransferase 20 U/L (7-40); Albumin 3.8 g/dL (3.2-4.8); Alkaline Phosphatase 198 U/L (46-116); Anion Gap 5 (5-15); Aspartate Aminotransferase 35 U/L (13-40); BUN/Creatinine Ratio 14.8 (10.0-20.0); Blood Urea Nitrogen 8 mg/dL (9-23); Calcium 9.1 mg/dL (8.7-10.4); Carbon Dioxide 28 mmol/L (20-30); Chloride 109 mmol/L (98-107); Glucose 118 mg/dL (74-106); Potassium 3.4 mmol/L (3.5-5.1); Sodium 142 mmol/L (136-145)
[2024-03-08 14:06] LABS: Total Protein 6.9 g/dL (5.7-8.2)
== END | disposition home or self-care (01) ==
LOC: LAB 12:27
PROVIDERS: ATTEND Internal Medicine
DX: R06.09 Other forms of dyspnea (principal)
CPT/HCPCS: 36415; 80053; 82306; 83880; 85025; 85379

== ENCOUNTER → 2024-07-30 | Day surgery (SDC) | payer OTHER ==
[2024-07-28 10:31] LABS: Basophils # (auto) 0 10 ^3/uL (0-0.2); Basophils % (auto) 0.5 % (0.0-2.0); Eosinophils # (auto) 0.2 10 ^3/uL (0-0.8); Eosinophils % (auto) 4.1 % (0.0-7.0); Hematocrit 44.4 % (36.0-46.0); Hemoglobin 15.2 g/dL (12.2-16.2); Lymphocytes # (auto) 0.9 10 ^3/uL (0.4-5.4); Lymphocytes % (auto) 22.2 % (10.0-50.0); Mean Corpuscular Hemoglobin 32.3 pg (28.0-32.0); Mean Corpuscular Hgb Conc. 34.2 g/dL (32.0-36.0); Mean Corpuscular Volume 94.7 fL (80.0-100.0); Monocytes # (auto) 0.5 10 ^3/uL (0-1.3); Monocytes % (auto) 11.4 % (0.0-12.0); Neutrophils # (auto) 2.6 10 ^3/uL (1.6-8.6); Neutrophils % (auto) 61.8 % (37.0-80.0); Nucleated Red Blood Cells % 0.4 %; Platelet Count (auto) 123 10^3/uL (140-450); Red Blood Cells 4.69 10^6/uL (4.0-5.20); Red Cell Distribution Width 13.8 % (11.8-14.3); White Blood Cell 4.2 10^3/uL (4.4-10.8)
[2024-07-28 10:40] LABS: INR 1.06 (0.9-1.15); Partial Thromboplastin Time 27.3 SEC (24.5-34.5); Prothrombin Time 11.2 sec (9.3-11.8)
[2024-07-28 11:05] LABS: Alanine Aminotransferase 23 U/L (7-40); Anion Gap 10 (5-15); Aspartate Aminotransferase 33 U/L (13-40); Blood Urea Nitrogen 9 mg/dL (9-23); Calcium 9.6 mg/dL (8.7-10.4); Carbon Dioxide 26 mmol/L (20-31); Chloride 106 mmol/L (98-107); Potassium 3.7 mmol/L (3.5-5.1); Sodium 142 mmol/L (136-145); Total Protein 6.8 g/dL (5.7-8.2)
[2024-07-28 11:09] LABS: Alkaline Phosphatase 196 U/L (46-116); Bilirubin, Total 1.5 mg/dL (0.2-1.0); Glucose 158 mg/dL (74-106)
[~2024-07-30] VITALS: Ht 154.9 cm; Wt 90.7 kg
[~2024-07-30] MED LIST changes: +FLUMAZENIL 0.1 MG/ML INJ 10ML MDV IV ONE; +GLIP5TAB21 PO; -LEVO500T91 PO; -MET500T PO; +NALOXONE HCL 0.4 MG/ML VIAL ONE; -PRED20TA2 PO; +SIMETHICONE 40 MG/0.6 ML ORAL DROP ONE; +SODIUM CHLORIDE LOCK 10 ML ONE
[2024-07-30 09:54] VITALS: PULSE 77; RESP 16; O2SAT 99
[2024-07-30] MEDS: MIDAZOLAM HCL 5 MG/ML-1ML VIAL ONE (09:55)
[2024-07-30] MEDS: fentaNYL CITRATE 100 MCG/2 ML VL ONE (09:55)
[2024-07-30] MEDS: diphenhdrAMINE HCL 50 MG/1 ML VL ONE (09:55)
[2024-07-30 10:18] VITALS: PULSE 76; RESP 16; O2SAT 100
[2024-07-30 10:20] VITALS: TEMP 98.2
--- NOTE | 2024-07-30 10:22 | DVHOP2 ---
Operative Report DATE OF OPERATION: 07/30/24 PROCEDURE: Colonoscopy with snare polypectomy PREOPERATIVE INDICATION: The patient is a 74 -year-old female undergoing colonoscopy for colon cancer screening POSTOPERATIVE DIAGNOSES: 1. Patient had a 1-1.5 cm benign-appearing sigmoid polyp that was seen and removed by hot snare polypectomy and the specimens were retrieved 2. There was a 2 mm benign-appearing proximal ascending colon polyp that was see n and removed by cold biopsy forceps 3. There was a 4-5 mm benign-appearing distal ascending colon polyp in the hepatic flexure that was seen and removed by cold snare polypectomy 4. There was mild scattered diverticular disease 5. 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 1+ internal hemorrhoids otherwise normal examination up to the terminal ileum PROCEDURE PERFORMED BY: Candace Nieves M.D. SCOPE: Olympus videocolonoscope. ASA CLASS: 3 PREOPERATIVE MEDICATIONS: Versed 3 mg, Fentanyl 50 mcg, Benadryl 50 mg PROCEDURE IN DETAIL: After obtaining an informed consent, the patient was placed on left lateral decubitus position. She was then sedated with the above medications. A rectal examination was performed that was normal. The colonoscope was then passed through the anus into the rectosigmoid and through the descending, transverse, and ascending colon up to the cecum with visualization of the appendiceal orifice, base of the cecum and the ileocecal valve. The colonoscope was then withdrawn. The distal 5-10 cm of the terminal ileum were normal In the proximal ascending colon there was a 2 mm benign-appearing polyp that was seen and removed by cold biopsy forceps In the distal ascending colon in the hepatic flexure there was a 4 mm benign- appearing polyp that was seen and removed by cold snare polypectomy Patient had scattered diverticular disease. Patient also had what appeared to be multiple scattered arteriovenous malformations more prominent in the right colon In the sigmoid colon there was a 1-1.5 cm benign-appearing polyp that was seen and removed completely via hot snare polypectomy and the specimens were retrieved On retroflexion and straight on view the patient had 1+ internal hemorrhoids The patient tolerated the procedure well without difficulty. WITHDRAWAL TIME: 11 minutes QUALITY OF THE PREP: [place] Bowel Prep score: 9. COMPLICATIONS : None SPECIMENS: Ascending colon polyps x2 Sigmoid polyp x1 DISPOSITION: Stable D/C to home PLAN: 1. Repeat colonoscopy base on biopsy result likely in 2-3 years 2. Resume GI soft diet advance as tolerated 3. Increase fluid and fiber intake 4. Avoid aspirin NSAIDs and blood thinners 5. Outpatient follow up with me in 4-6 weeks to review results and discuss further management CANDACE NIEVES MD Jul 30, 2024 10:22
[2024-07-30 10:40] VITALS: BP 134/72; PULSE 79; RESP 19; O2SAT 95
== END | disposition home or self-care (01) ==
LOC: GI 08:59
PROVIDERS: ATTEND Internal Medicine Gastroenterology
DX: Z12.11 Encounter for screening for malignant neoplasm of colon (principal); D12.2 Benign neoplasm of ascending colon; K63.5 Polyp of colon; K57.30 Diverticulosis of large intestine without perforation or abscess without bleeding; K64.8 Other hemorrhoids; K76.0 Fatty (change of) liver, not elsewhere classified; E11.9 Type 2 diabetes mellitus without complications; Z79.899 Other long term (current) drug therapy; Z98.890 Other specified postprocedural states
CPT/HCPCS: 36415; 45380; 45385; 80053; 82962; 85025; 85610; 85730; 88305; J1200; J2250; J3010; J7030; 99152

== ENCOUNTER → 2024-08-09 | Outpatient (CLI) | payer OTHER ==
[~2024-08-09] MED LIST changes: -FLUMAZENIL 0.1 MG/ML INJ 10ML MDV IV ONE; -NALOXONE HCL 0.4 MG/ML VIAL ONE; -SIMETHICONE 40 MG/0.6 ML ORAL DROP ONE; -SODIUM CHLORIDE LOCK 10 ML ONE
[2024-08-09 11:08] LABS: INR 1.07 (0.9-1.15); Prothrombin Time 11.3 sec (9.3-11.8)
[2024-08-09 11:36] LABS: Basophils # (auto) 0 10 ^3/uL (0-0.2); Basophils % (auto) 0.6 % (0.0-2.0); Eosinophils # (auto) 0.2 10 ^3/uL (0-0.8); Eosinophils % (auto) 5.1 % (0.0-7.0); Hematocrit 46.2 % (36.0-46.0); Hemoglobin 15.4 g/dL (12.2-16.2); Lymphocytes # (auto) 1.2 10 ^3/uL (0.4-5.4); Lymphocytes % (auto) 25.9 % (10.0-50.0); Mean Corpuscular Hemoglobin 31.7 pg (28.0-32.0); Mean Corpuscular Hgb Conc. 33.4 g/dL (32.0-36.0); Mean Corpuscular Volume 94.9 fL (80.0-100.0); Monocytes # (auto) 0.6 10 ^3/uL (0-1.3); Monocytes % (auto) 13.5 % (0.0-12.0); Neutrophils # (auto) 2.6 10 ^3/uL (1.6-8.6); Neutrophils % (auto) 54.9 % (37.0-80.0); Nucleated Red Blood Cells % 0.6 %; Platelet Count (auto) 141 10^3/uL (140-450); Red Blood Cells 4.87 10^6/uL (4.0-5.20); Red Cell Distribution Width 13.9 % (11.8-14.3); White Blood Cell 4.8 10^3/uL (4.4-10.8)
[2024-08-09 12:45] LABS: Alanine Aminotransferase 20 U/L (7-40); Albumin 3.9 g/dL (3.2-4.8); Alkaline Phosphatase 195 U/L (46-116); Aspartate Aminotransferase 26 U/L (13-40); Bilirubin, Total 1.3 mg/dL (0.2-1.0); Blood Urea Nitrogen 9 mg/dL (9-23); Calcium 9.7 mg/dL (8.7-10.4); Carbon Dioxide 23 mmol/L (20-31); Glucose 162 mg/dL (74-106); Total Protein 6.5 g/dL (5.7-8.2)
[2024-08-09 12:47] LABS: Anion Gap 12 (5-15); Chloride 106 mmol/L (98-107); Potassium 3.6 mmol/L (3.5-5.1); Sodium 141 mmol/L (136-145)
== END | disposition home or self-care (01) ==
LOC: LAB 09:49
PROVIDERS: ATTEND Internal Medicine
DX: K74.3 Primary biliary cirrhosis (principal)
CPT/HCPCS: 36415; 80053; 82105; 85025; 85610

== ENCOUNTER 2025-01-03 06:45 | Outpatient (CLI) | payer OTHER ==
[2025-01-03 08:05] LABS: Hematocrit 44.2 % (36.0-46.0); Hemoglobin 15.1 g/dL (12.2-16.2); Mean Corpuscular Hemoglobin 32.1 pg (28.0-32.0); Mean Corpuscular Volume 93.6 fL (80.0-100.0); Nucleated Red Blood Cells % 0.2 %
[2025-01-03 08:15] LABS: Urine Protein, UAD Negative (Negative)
[2025-01-03 08:18] LABS: INR 1.03 (0.9-1.15); Prothrombin Time 10.9 sec (9.3-11.8)
[2025-01-03 08:48] LABS: Alanine Aminotransferase 22 U/L (7-40); Albumin 4.0 g/dL (3.2-4.8); Anion Gap 10 (5-15); BUN/Creatinine Ratio 14.0 (10.0-20.0); Calcium 9.7 mg/dL (8.7-10.4); Carbon Dioxide 26 mmol/L (20-31); Cholesterol 120 mg/dL (< 200); HDL Cholesterol 53 mg/dL (40-59); Potassium 3.7 mmol/L (3.5-5.1); Sodium 144 mmol/L (136-145); Total Protein 6.6 g/dL (5.7-8.2); Triglycerides 90 mg/dL (< 150)
[2025-01-03 08:49] LABS: Bilirubin, Total 1.0 mg/dL (0.2-1.0)
[2025-01-03 08:54] LABS: Alkaline Phosphatase 202 U/L (46-116); Blood Urea Nitrogen 8 mg/dL (9-23); Chloride 108 mmol/L (98-107); Glucose 132 mg/dL (74-106)
[2025-01-03 09:15] LABS: Microalb/Creat Ratio, Urine 6.0
[2025-01-03 10:36] LABS: Free T4 (Free Thyroxine) 1.01 ng/dL (0.89-1.76)
== END 2025-01-03 17:00 | disposition home or self-care (01) ==
LOC: LAB 06:45
PROVIDERS: ATTEND Internal Medicine
DX: E11.9 Type 2 diabetes mellitus without complications (principal); K74.3 Primary biliary cirrhosis
CPT/HCPCS: 36415; 80053; 80061; 81001; 82043; 82570; 82607; 83036; 84439; 84443; 85025; 85610; 85652

== ENCOUNTER 2025-02-14 10:48 | Outpatient (CLI) | payer OTHER | END 2025-02-14 17:00 | disposition home or self-care (01) | LOC: Rad HDHVI 10:48 | PROVIDERS: ATTEND Internal Medicine Cardiovascular Disease | DX: I08.3 Combined rheumatic disorders of mitral, aortic and tricuspid valves (principal); I10 Essential (primary) hypertension; E78.5 Hyperlipidemia, unspecified | CPT/HCPCS: 93306 ==

== ENCOUNTER 2025-02-16 09:14 | Outpatient (CLI) | payer OTHER ==
[~2025-02-16] VITALS: Ht 154.9 cm; Wt 94.3 kg
[2025-02-16] MEDS ORDERED: ADENOSINE 90 MG/30 ML INJ IV ONE (09:52)
[2025-02-16] MEDS ORDERED: ADENOSINE 79 MG in GIVE UN-DILUTED 0 ML IV ONE (10:00)
== END 2025-02-16 17:00 | disposition home or self-care (01) ==
LOC: Rad HDHVI 09:14
PROVIDERS: ATTEND Internal Medicine Cardiovascular Disease
DX: R06.00 Dyspnea, unspecified (principal); R07.89 Other chest pain; R94.31 Abnormal electrocardiogram [ECG] [EKG]; R06.02 Shortness of breath; R00.2 Palpitations; E11.42 Type 2 diabetes mellitus with diabetic polyneuropathy
CPT/HCPCS: 78452; 93017; A9500; J0153

== ENCOUNTER → 2025-04-11 | Outpatient (CLI) | payer OTHER ==
[2025-04-11 12:10] LABS: Hematocrit 43.6 % (36.0-46.0); Hemoglobin 14.7 g/dL (12.2-16.2); Mean Corpuscular Hemoglobin 31.7 pg (28.0-32.0); Mean Corpuscular Volume 93.9 fL (80.0-100.0); Nucleated Red Blood Cells % 0.3 %
[2025-04-11 12:25] LABS: INR 1.06 (0.9-1.15); Partial Thromboplastin Time 25.9 SEC (24.5-34.5); Prothrombin Time 11.2 sec (9.3-11.8)
[2025-04-11 12:56] LABS: Alanine Aminotransferase 19 U/L (7-40); Albumin 3.7 g/dL (3.2-4.8); Anion Gap 10 (5-15); BUN/Creatinine Ratio 11.7 (10.0-20.0); Carbon Dioxide 29 mmol/L (20-31); Chloride 104 mmol/L (98-107); Potassium 3.9 mmol/L (3.5-5.1); Sodium 143 mmol/L (136-145); Total Protein 6.7 g/dL (5.7-8.2)
[2025-04-11 12:57] LABS: Bilirubin, Total 0.8 mg/dL (0.2-1.0)
[2025-04-11 13:02] LABS: Alkaline Phosphatase 202 U/L (46-116); Blood Urea Nitrogen 7 mg/dL (9-23); Calcium 8.5 mg/dL (8.7-10.4); Glucose 223 mg/dL (74-106)
== END | disposition home or self-care (01) ==
LOC: LAB 11:47
PROVIDERS: ATTEND Internal Medicine Gastroenterology
DX: K63.5 Polyp of colon (principal); K74.60 Unspecified cirrhosis of liver; K21.9 Gastro-esophageal reflux disease without esophagitis
CPT/HCPCS: 36415; 80053; 83036; 85025; 85610; 85730